=== PATIENT | female | born 1990 | race Caucasian/White ===

== ENCOUNTER 2018-10-12 10:52 | Emergency (ER) | payer OTHER ==
[2018-10-12 11:09] VITALS: BP 140/87
--- NOTE | 2018-10-12 11:51 | XRAY Report ---
Reason: pain with ROM, no known injury Procedure Date: 10/12/2018 Accession Number: [id number] / [id number] Procedure: XR - Shoulder 3 View RT CPT Code: FULL RESULT: EXAM: RIGHT SHOULDER RADIOGRAPHY EXAM DATE: 10/12/2018 11:24 AM. CLINICAL HISTORY: Pain with ROM, no known injury. COMPARISON: None. TECHNIQUE: 4 views. FINDINGS: Bones: Normal. No fracture or bone lesion. Joints: The glenohumeral and acromioclavicular joints are normal. Soft tissues: The visualized hemithorax is unremarkable. No soft tissue swelling. IMPRESSION: Normal shoulder radiography. RADIA
--- NOTE | 2018-10-12 12:54 | ED Physician Documentation ---
PD HPI UPPER EXT INJURY - Stated complaint Stated Complaint: RT SHOULDER PX - Chief complaint Chief Complaint: Ext Problem - History obtained from History obtained from: Patient - History of Present Illness Location: Right (This is a right-handed woman who had on and off problems with the right shoulder but never severe. Over the last week it has been much more significant without specific injury. Pain across the top of the shoulder that is especially severe with motion and abduction. No fevers or chills.) Review of Systems Constitutional: denies: Fever, Chills Respiratory: denies: Dyspnea, Cough GI: denies: Abdominal Pain, Nausea, Vomiting PD PAST MEDICAL HISTORY - Present Medications Home Medications: Ambulatory Orders Medication Instructions Recorded Confirmed Meloxicam [Mobic] 7.5 mg PO BID PRN #20 tablet 10/12/18 - Allergies Allergies/Adverse Reactions: Allergies Allergy/AdvReac Type Severity Reaction Status Date / Time No Known Drug Allergies Allergy Verified 10/12/18 11:09 PD ED PE NORMAL - Vitals Vital signs reviewed: Yes - General General: Alert and oriented X 3, No acute distress - Neck Neck: Supple, no meningeal sign, No bony TTP - Extremities Extremities: Other (Mild tenderness over the glenohumeral joint. No warmth or redness. She has relatively painless internal and external rotation. She has a lot of pain with abduction which is much less when I do it for her and she is passive. She has normal sensation throughout the upper extremities, normal life skills educator strength, thumb extension, and interosseous strength bilaterally.) - Neuro Neuro: Alert and oriented X 3, Normal speech Results - Vitals Vitals: Vital Signs - 24 hr 10/12/18 11:07 Temperature 36.4 C L Heart Rate 85 Respiratory 18 Rate Blood Pressure 140/87 H O2 Saturation 98 Oxygen O2 Source Room air - Rads (name of study) Right shoulder x-ray 3 views Radiology: EMP read contemporaneously (Normal) Departure - Departure Disposition: 01 Home, Self Care Clinical Impression: Strain of right rotator cuff capsule Qualifiers: Encounter type: initial encounter Qualified Code(s): S46.011A - Strain of muscle(s) and tendon(s) of the rotator cuff of right shoulder, initial encounter Condition: Good Record reviewed to determine appropriate education?: Yes Instructions: ED Tendinitis Rotator Cuff Prescriptions: Meloxicam [Mobic] 7.5 mg PO BID PRN #20 tablet PRN Reason: Pain Comments: Wear the sling for only a day or 2 for comfort. Do the exercises as shown several times a day to prevent frozen shoulder. Follow-up with your primary care physician in a week if not improved. Return for new or worsening symptoms. Your blood pressure was elevated today on check into the emergency department. This does not mean that you have hypertension, it is a common phenomenon to come to the emergency department and have elevated blood pressure. I recommend that you see your primary care physician within the week to have it rechecked when you are feeling better. Forms: Activity restrictions
== END 2018-10-12 13:10 | disposition home or self-care (01) ==
LOC: ED 10:52
DX: S46.011A Strain of muscle(s) and tendon(s) of the rotator cuff of right shoulder, initial encounter (principal); X58.XXXA Exposure to other specified factors, initial encounter; R03.0 Elevated blood-pressure reading, without diagnosis of hypertension
CPT/HCPCS: 99283

== ENCOUNTER 2018-12-03 08:00 | Outpatient (CLI) | payer OTHER | END 2018-12-03 23:59 | disposition home or self-care (01) | LOC: LAB.WCP 08:00 | PROVIDERS: ATTEND Physician Assistant | DX: Z33.1 Pregnant state, incidental (principal) | CPT/HCPCS: 36415; 84702 ==

== ENCOUNTER 2018-12-11 07:02 | Outpatient (CLI) | payer OTHER ==
--- NOTE | 2018-12-11 08:32 | Ultrasound Report ---
Reason: TEST POSITIVE Procedure Date: 12/11/2018 Accession Number: [id number] / [id number] Procedure: US - OB First Trimester CPT Code: FULL RESULT: EXAM: FIRST TRIMESTER OBSTETRIC ULTRASOUND (Less than 11 weeks) EXAM DATE: 12/11/2018 07:27 AM. CLINICAL HISTORY: Positive test. Unsure of dates. LMP unknown LMP: Unknown. COMPARISONS: None. TECHNIQUE: Transabdominal and transvaginal ultrasound examination with static image documentation. CLINICAL DATES: EGA unknown. ASSESSMENT: Gestational Sac: Single intrauterine. Mean gestational sac diameter: 20.9 mm = 6 weeks 5 days. Embryo: CRL (crown-rump length) 5.1 mm = 6 weeks 3 days. Cardiac activity: 116 beats per minute. Yolk sac: 4.1 mm. Amniotic fluid: Not accurately assessed at this gestational age. Early placenta: Not visible at this gestational age. Other: No perigestational fluid collection demonstrated. MATERNAL STRUCTURES: Uterus: Unremarkable. . Cervix: Closed. Right Ovary/Adnexa: The ovary measures 3.1 x 3.1 x 2.6 cm, volume 13.0 cc. 18 mm maximal diameter luteal cyst. Left Ovary/Adnexa: The ovary measures 2.5 x 1.3 x 1.6 cm, volume 2.7 cc. Unremarkable. Free Fluid: None. Other: None. IMPRESSION: 1. Single viable intrauterine at EGA 6 weeks 3 days with NAOMI 08/03/2019 based on current ultrasound. LMP 8 unsure. 2. Assigned dating is NAOMI 08/03/2019 based on current ultrasound. RADIA
== END 2018-12-11 07:03 | disposition home or self-care (01) ==
LOC: DI 07:02
PROVIDERS: ATTEND Nurse Practitioner Obstetrics & Gynecology
DX: Z32.01 Encounter for pregnancy test, result positive (principal)
CPT/HCPCS: 76801; 76817

== ENCOUNTER 2018-12-30 14:08 | Outpatient (CLI) | payer OTHER ==
[2018-12-30 23:13] LABS: TRICHOMONAS VAGINALIS DNA NEGATIVE (NEGATIVE)
== END 2018-12-30 14:45 | disposition home or self-care (01) ==
LOC: LAB.R 14:08
PROVIDERS: ATTEND Obstetrics & Gynecology
DX: Z34.80 Encounter for supervision of other normal pregnancy, unspecified trimester (principal)
CPT/HCPCS: 87491; 87591; 87661

== ENCOUNTER 2019-02-24 10:04 | Outpatient (CLI) | payer OTHER ==
[2019-02-24 10:30] LABS: BASOPHILS % (AUTO) 0.3 %; EOSINOPHILS # (AUTO) 0.1 10^3/uL (0.0-0.7); EOSINOPHILS % (AUTO) 1.1 %; HGB - HEMOGLOBIN 11.4 g/dL (12.0-16.0); LYMPHOCYTES # (AUTO) 1.5 10^3/uL (1.5-3.5); LYMPHOCYTES % (AUTO) 20.1 %; MEAN CORPUSCULAR HEMOGLOBIN 31.8 pg (27.0-31.0); MEAN CORPUSCULAR HGB CONC 34.7 g/dL (32.0-36.0); MEAN CORPUSCULAR VOLUME 91.6 fL (81.0-99.0); MEAN PLATELET VOLUME 9.5 fL (7.9-10.8); MONOCYTES # (AUTO) 0.4 10^3/uL (0.0-1.0); MONOCYTES % (AUTO) 5.1 %; NEUTROPHILS # (AUTO) 5.4 10^3/uL (1.5-6.6); NEUTROPHILS % (AUTO) 72.9 %; PLT - PLATELET COUNT 177 10^3/uL (130-450); RED BLOOD COUNT 3.59 10^6/uL (4.20-5.40); RED CELL DISTRIBUTION WIDTH 12.9 % (12.0-15.0); WHITE BLOOD COUNT 7.4 x10^3/uL (4.8-10.8)
[2019-02-25 11:35] LABS: HEPATITIS C ANTIBODY NON-REACTIVE (NON-REACTIVE)
[2019-02-25 11:37] LABS: HEPATITIS B SURFACE ANTIGEN NON-REACTIVE (NON-REACTIVE)
[2019-02-25 13:16] LABS: HIV AG/AB 4TH GEN NON-REACTIVE (NON-REACTIVE)
== END 2019-02-24 10:05 | disposition home or self-care (01) ==
LOC: LAB 10:04
PROVIDERS: ATTEND Obstetrics & Gynecology
DX: Z34.80 Encounter for supervision of other normal pregnancy, unspecified trimester (principal)
CPT/HCPCS: 36415; 81511; 81599; 85025; 86592; 86762; 86803; 86850; 86900; 86901; 87340; 87389

== ENCOUNTER 2019-02-27 08:27 | Outpatient (CLI) | payer OTHER | END 2019-02-27 08:28 | disposition home or self-care (01) | LOC: DI 08:27 | PROVIDERS: ATTEND Obstetrics & Gynecology | DX: Z53.9 Procedure and treatment not carried out, unspecified reason (principal) ==

== ENCOUNTER 2019-03-16 06:49 | Outpatient (CLI) | payer OTHER ==
--- NOTE | 2019-03-16 12:14 | Ultrasound Report ---
Reason: SUPERVISION NORMAL MULTIPAROUS Procedure Date: 03/16/2019 Accession Number: [id number] / [id number] Procedure: US - OB Detailed Eval CPT Code: FULL RESULT: EXAM: COMPLETE OBSTETRICAL ULTRASOUND EXAM DATE: 03/16/2019 08:45 AM. CLINICAL HISTORY: anatomic survey. COMPARISON: OB FIRST TRIMESTER 12/11/2018 7:27 AM. TECHNIQUE: Real-time sonographic evaluation of the fetus performed by the supervisor shuttle fitting. Multiple malt liquors sales representative static images were saved for review. DATING: Established EGA 20 weeks 0 days with NAOMI 08/03/2019 based on first ultrasound of 12/11/2018. EGA 21 weeks 0 days with NAOMI 07/27/2019 based on the current ultrasound. GENERAL EVALUATION [place] . Cardiac activity: 144 bpm. movement: Visualized. Presentation: Variable Placenta: Anterior position. No evidence for previa. Umbilical cord: 3 vessel cord. Central placental cord origin. Amniotic fluid: Subjectively normal. MVP 4.1 cm. BIOMETRY Bi-Parietal Diameter (BPD): 5 cm, 21 weeks 0 days Head Circumference (HC): 18.2 cm, 20 weeks 4 days Abdominal Circumference (AC): 16.2 cm, 21 weeks 2 days Femur Length (FL): 3.5 cm, 21 weeks 0 days Estimated Weight: 398 g, 94th percentile for 20 weeks 0 days. ANATOMY The intracranial structures, profile, face/nose/lips, spine, 4 chamber heart and outflow tracts, stomach, abdominal wall and cord insertion, diaphragm, kidneys, bladder, and extremities were visualized and demonstrate no abnormality. MATERNAL STRUCTURES Uterus: Unremarkable. Cervix: Long and closed. Transabdominal length 3.9 cm. Right ovary/adnexa: Unremarkable. Left ovary/adnexa: Unremarkable. Free fluid: None. IMPRESSION: 1. [place] intrauterine with gestational age 20 weeks 0 days based on 12/11/2018 ultrasound. 2. Estimated weight is at the 94th percentile for assigned dating. 3. Normal anatomic survey. No anatomic abnormalities are detected at this time. RADIA
== END 2019-03-16 06:50 | disposition home or self-care (01) ==
LOC: DI 06:49
PROVIDERS: ATTEND Obstetrics & Gynecology
DX: Z34.80 Encounter for supervision of other normal pregnancy, unspecified trimester (principal)
CPT/HCPCS: 76811

== ENCOUNTER 2019-05-07 15:20 | Outpatient (CLI) | payer OTHER ==
[2019-05-07 16:45] LABS: HGB - HEMOGLOBIN 10.6 g/dL (12.0-16.0); MEAN CORPUSCULAR HEMOGLOBIN 32.3 pg (27.0-31.0); MEAN CORPUSCULAR HGB CONC 35.8 g/dL (32.0-36.0); MEAN CORPUSCULAR VOLUME 90.2 fL (81.0-99.0); MEAN PLATELET VOLUME 9.2 fL (7.9-10.8); RED BLOOD COUNT 3.28 10^6/uL (4.20-5.40); RED CELL DISTRIBUTION WIDTH 11.9 % (12.0-15.0); WHITE BLOOD COUNT 10.8 x10^3/uL (4.8-10.8)
== END 2019-05-07 15:21 | disposition home or self-care (01) ==
LOC: LAB 15:20
PROVIDERS: ATTEND Obstetrics & Gynecology
DX: Z34.80 Encounter for supervision of other normal pregnancy, unspecified trimester (principal)
CPT/HCPCS: 36415; 82950; 85027; 86850

== ENCOUNTER 2019-06-30 02:10 | Inpatient (IN) | payer OTHER ==
[2019-06-30] MEDS ORDERED: SODIUM CHLORIDE FLUSH 0.9% 10 ML SYRINGE IVP PRN (02:35)
[2019-06-30] MEDS ORDERED: BETAMETHASONE 30 MG/5 ML VIAL IM ONE (02:39)
[2019-06-30] MEDS ORDERED: AMPICILLIN 2 GM in SODIUM CHLORIDE 0.9% MINIBAG 100 ML IV ONE (02:39)
--- NOTE | 2019-06-30 02:45 | HISTORY & PHYSICAL EXAMINATION ---
Admit History - Visit Reason Visit Reason: Membranes rupture, Other (Pt is a 28yo at 35 1/7 weeks who presents following gush of clear fluid at 0130 today. No bleeding or contractions. No N/V/F/C. Reports normal activity. complicated by iron deficiency anemia.) - : 2 Parity: 0 Premature: 0 Ectopic: 0 : 1 Care: positive: [facility] Risk/History: positive: None, Other (O neg Rubella immune HIV/Hep B and C/VDRL neg GC/chlam neg Glucola 125 Varicella not immune S/P TDap and flu shot 06/09/19) Complications This : positive: Other (Iron deficiency anemia; last H&H 29.6/10.6 05/07/19) Smoking Status: Former smoker - Mother's Labs Mother's Blood Type: positive: O Mother's RH: positive: Negative GBS: positive: Other (Unknown) Rubella Status: positive: Immune Meds/Allgy - Home Medications Home Medications: Ambulatory Orders Medication Instructions Recorded Confirmed Calcium Carbonate/Vitamin D3 06/30/19 [Calcium 250-D Tablet] Ferrous Gluconate [Iron] 240 mg 06/30/19 Pnv No.95/Ferrous Fum/Folic AC 1 tab PO DAILY 06/30/19 06/30/19 [ Caplet] - Allergies Allergies/Adverse Reactions: Allergies Allergy/AdvReac Type Severity Reaction Status Date / Time No Known Drug Allergies Allergy Verified 10/12/18 11:09 Review of Systems - Cardiovascular Cariovascular: denies: Palpitations - Respiratory Respiratory: denies: Wheezing - Gastrointestinal Gastrointestinal: denies: Abdominal pain - Genitourinary Genitourinary: denies: Dysuria - Neurological Neurological: denies: Headache - Hematologic/Lymphatic Hematologic/Lymphatic: reports: Anemia - All Other Systems All Other Systems: reports: Reviewed and negative Physical - Abdominal Exam Vital Signs: Temp Pulse Resp BP Pulse Ox 97.9 F 101 H 20 141/80 H 100 06/30/19 02:21 06/30/19 02:21 06/30/19 02:21 06/30/19 02:21 06/30/19 02:21 Contraction Intensity: positive: Mild, Other (Not feeling them) Uterine Resting Tone: positive: Soft (Contractions on EFM q2-4 minutes; patient not feeling them) - Monitoring Strip Review: positive: Category I - Presentation Presentation: positive: Vertex - Vaginal Exam Membranes: positive: Membranes ruptured Dilation (in cm): 0 Effacement (%): 0 Cervical Position: positive: Midposition (Sterile spec exam only; visual assessment) Plan for Labor - Plan For Labor Plan for Labor: 28yo at 35 1/7 weeks with PPROM clear fluid at 0130 today, not in labor, cervix visually L/C. Plan transfer to [facility]. They request hold on ampicillin so they can perform rapid GBS. GBS unknown; complicated by anemia Exam otherwise normal. Contractions not noted by patient. Category 1 tracing. Plan betamethasone CBC Borderline BP on admission; rpt 131/83 No previously elevated BP Transfer accepted by Dr Kinney Exam - Exam Vital Signs: Vital Signs (72 hours) 06/30/19 02:21 Temperature 97.9 F Heart Rate [ 101 H Monitoring electrodes] Respiratory 20 Rate Blood Pressure 141/80 H [Left Brachial artery] O2 Saturation 100 General: Alert, Oriented x3 HEENT: Atraumatic Lungs: Clear to auscultation Cardiovascular: Regular rate, Other (3/6 systolic murmur along LSB) Abdomen: Soft, No tenderness, Other (Gravid, S=D) Extremities: No edema Skin: No rashes Psych/Mental Status: Mental status NL
[2019-06-30] MEDS ORDERED: LACTATED RINGERS 1,000 ML IV SCH (03:00)
[2019-06-30 03:11] LABS: BASOPHILS % (AUTO) 0.3 %; EOSINOPHILS # (AUTO) 0.2 10^3/uL (0.0-0.7); EOSINOPHILS % (AUTO) 1.7 %; HGB - HEMOGLOBIN 11.2 g/dL (12.0-16.0); LYMPHOCYTES # (AUTO) 2.7 10^3/uL (1.5-3.5); LYMPHOCYTES % (AUTO) 25.1 %; MEAN CORPUSCULAR HEMOGLOBIN 30.4 pg (27.0-31.0); MEAN CORPUSCULAR HGB CONC 34.4 g/dL (32.0-36.0); MEAN CORPUSCULAR VOLUME 88.6 fL (81.0-99.0); MEAN PLATELET VOLUME 9.7 fL (7.9-10.8); MONOCYTES # (AUTO) 0.9 10^3/uL (0.0-1.0); MONOCYTES % (AUTO) 8.4 %; NEUTROPHILS # (AUTO) 6.8 10^3/uL (1.5-6.6); NEUTROPHILS % (AUTO) 63.1 %; PLT - PLATELET COUNT 162 10^3/uL (130-450); RED BLOOD COUNT 3.68 10^6/uL (4.20-5.40); RED CELL DISTRIBUTION WIDTH 13.2 % (12.0-15.0); WHITE BLOOD COUNT 10.8 x10^3/uL (4.8-10.8)
[2019-06-30 04:38] VITALS: BP 131/83
[2019-06-30] MEDS ORDERED: SODIUM CHLORIDE FLUSH 0.9% 10 ML SYRINGE IVP SCH (09:00)
== END 2019-06-30 04:10 | disposition short-term general hospital (02) | DRG 833 ==
LOC: WFO 02:10 → FBP 02:12 → WFO 02:45
PROVIDERS: ADMIT Obstetrics & Gynecology; ATTEND Obstetrics & Gynecology
DX: O42.913 Preterm premature rupture of membranes, unspecified as to length of time between rupture and onset of labor, third trimester (principal); Z3A.35 35 weeks gestation of pregnancy; O99.013 Anemia complicating pregnancy, third trimester; D50.9 Iron deficiency anemia, unspecified; R03.0 Elevated blood-pressure reading, without diagnosis of hypertension; Z87.891 Personal history of nicotine dependence; Z79.899 Other long term (current) drug therapy
CPT/HCPCS: 36415; 85025; J7120; 99214

== ENCOUNTER 2020-03-16 12:19 | Emergency (ER) | payer OTHER ==
[2020-03-16] MEDS ORDERED: BUFFERED LIDOCAINE 10 ML SYRINGE SUBQ STA (12:33)
[2020-03-16] MEDS ORDERED: BACITRACIN ZINC OINT 1 PACKET TOP STA (12:33)
[2020-03-16] MEDS ORDERED: ONDANSETRON ODT 4 MG TABLET TL STA (12:40)
--- NOTE | 2020-03-16 12:40 | ED Physician Documentation ---
History of Present Illness - Stated complaint Stated Complaint: LT HAND LAC - Chief complaint Chief Complaint: Laceration - History obtained from History obtained from: Patient - History of Present Illness Timing: Prior to arrival - Additonal information Additional information: Since the emergency department with a laceration on the dorsum of her left small finger sustained at work when she broke a glass in her hand. Tetanus is up-to-date. Patient is right-hand dominant. When being seen in fast track by provider patient began to feel faint and lightheaded and had a syncopal episode with about 10 to 15 seconds loss of consciousness it was followed followed by a very short lived seizure as evidenced by bue clonic jerking. She retained her pulse was able to wake after just a few seconds. Review of Systems Constitutional: reports: Reviewed and negative Eyes: reports: Reviewed and negative Nose: reports: Reviewed and negative Throat: reports: Reviewed and negative Cardiac: reports: Reviewed and negative Respiratory: reports: Reviewed and negative GI: reports: Reviewed and negative : reports: Reviewed and negative Skin: reports: Laceration (s) (left small finger) Musculoskeletal: reports: Reviewed and negative Neurologic: reports: Syncope (in fast track when she saw her cut and blood) Psychiatric: reports: Reviewed and negative Endocrine: reports: Reviewed and negative PD PAST MEDICAL HISTORY - Past Medical History Past Medical History: No Cardiovascular: None Respiratory: None Neuro: None Endocrine/Autoimmune: None GI: None 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 : None HEENT: None Psych: None Musculoskeletal: None Derm: None - Past Surgical History Past Surgical History: No - Present Medications Home Medications: Ambulatory Orders Medication Instructions Recorded Confirmed Calcium Carbonate/Vitamin D3 06/30/19 [Calcium 250-D Tablet] Ferrous Gluconate [Iron] 240 mg 06/30/19 Pnv No.95/Ferrous Fum/Folic AC 1 tab PO DAILY 06/30/19 06/30/19 [ Caplet] - Allergies Allergies/Adverse Reactions: Allergies Allergy/AdvReac Type Severity Reaction Status Date / Time No Known Drug Allergies Allergy Verified 03/16/20 12:22 - Social History Does the pt smoke?: No Smoking Status: Never smoker Does the pt drink ETOH?: No Does the pt have substance abuse?: No - Immunizations Immunizations are current?: Yes - POLST Patient has POLST: No PD ED PE NORMAL - General General: Alert and oriented X 3, Other (anxious; light headed about the laceration) - HEENT HEENT: PERRL - Neck Neck: Supple, no meningeal sign - Cardiac Cardiac: RRR, No murmur - Respiratory Respiratory: Clear bilaterally - Derm Derm: Normal color, Warm and dry, Other (4 cm irregular laceration dorsum left hand between MCP and PIP joint) - Extremities Extremities: No deformity. No: No tenderness to palpate (4 cm laceration on the dorsum of left small finger between MCP and PIP joint. Patient retains ability to fully flex and extend left small digit against resistance in all planes. There is mild tingling and numbness on the lateral side of the small finger) - Neuro Neuro: Alert and oriented X 3, [place] 2-12 intact, No motor deficit, No sensory deficit Eye Opening: Spontaneous Motor: Obeys Commands Verbal: Oriented GCS Score: 15 - Psych Psych: Normal mood, Normal affect Results - Vitals Vitals: Vital Signs - 24 hr 03/16/20 12:22 Temperature 37.1 C Heart Rate 108 H Respiratory 18 Rate Blood Pressure 153/99 H O2 Saturation 98 Oxygen O2 Source Room air Procedures - Laceration (location) left small finger Wound type: Irregular Neurovascular status: Sensory intact, Motor intact, Vascular intact Tendon involvement: Tendon intact Anesthesia: Lidocaine 1% Wound Preparation: Chlorhexadine, Irrigated copiously NS Skin layer closure: Size #-0 - enter number (5), Sutures - enter # (7) Other: Patient tolerated well, No complications, Neurovascular intact, Dressing applied, Tetanus UTD Complexity: Simple PD MEDICAL DECISION MAKING - ED course Complexity details: reviewed results, re-evaluated patient, d/w patient ED course: 29-year-old female presents to the emergency department with a 4 cm laceration overlying the dorsum of her left small finger between MCP and PIP joint. no e/o tendon injury. Wound was closed with 7 sutures. Tetanus is up-to-date. Patient did have a syncopal episode shortly after arriving in fast track when she saw her blood. During the time it which the wound was repaired and she was alert oriented and otherwise well-appearing. Tetanus is up-to-date within the last 5 years. 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 Departure - Departure Disposition: 01 Home, Self Care Clinical Impression: Finger laceration Qualifiers: Encounter type: initial encounter Finger: little finger Damage to nail status: without damage Foreign body presence: without foreign body Laterality: left Qualified Code(s): S61.217A - Laceration without foreign body of left little finger without damage to nail, initial encounter Condition: Stable Record reviewed to determine appropriate education?: Yes Instructions: ED Laceration All Follow-Up: Mary Ayala PA [Primary Care Provider] - Comments: The sutures in your left hand should be removed in 7 to 10 days. In 24 hours you may gently wash the wound with warm soap and water, apply any antibiotic ointment and a simple bandage. If you develop redness swelling milky drainage have increased pain or concerns of infection please return to the emergency department. Do Not submerge her hand in dirty water bath or dishwater until the wound is fully healed
[2020-03-16 13:37] VITALS: BP 124/74
== END 2020-03-16 13:35 | disposition home or self-care (01) ==
LOC: ED 12:19
DX: S61.217A Laceration without foreign body of left little finger without damage to nail, initial encounter (principal); W25.XXXA Contact with sharp glass, initial encounter; Y99.0 Civilian activity done for income or pay; R55 Syncope and collapse; R56.9 Unspecified convulsions
CPT/HCPCS: 12002; 99282; A9270; Q0162

== ENCOUNTER 2021-10-06 11:40 | Emergency (ER) | payer SELFPAY ==
[2021-10-06 11:49] VITALS: BP 150/90
--- NOTE | 2021-10-06 12:20 | ED Physician Documentation ---
PD HPI ABD PAIN - Stated complaint Stated Complaint: ABD PX - Chief complaint Chief Complaint: Abd Pain - History obtained from History obtained from: Patient - Additional information Additional information: The patient comes to the emergency department with chief complaint of upper abdominal pain, nausea, and lightheadedness. The patient states that she was feeling fine earlier this morning but almost 2 hours ago at work, she bent over to get something and when she stood up, she felt as though "something moved" in her right upper quadrant and she had nausea, right upper quadrant pain, and lightheadedness after that. The patient states she did not vomit. She still feeling a pain and a mild sense of nausea. Patient denies having had this before. No issues with right upper quadrant pain and nausea with eating. She is not known to have a cholecystitis/cholelithiasis history in her family. She denies any other symptoms or complaints at this time. Review of Systems Ten Systems: 10 systems reviewed and negative Constitutional: reports: Reviewed and negative Eyes: reports: Reviewed and negative Ears: reports: Reviewed and negative Nose: reports: Reviewed and negative Throat: reports: Reviewed and negative Cardiac: reports: Reviewed and negative Respiratory: reports: Reviewed and negative GI: reports: Abdominal Pain, Nausea : reports: Reviewed and negative Skin: reports: Reviewed and negative Musculoskeletal: reports: Reviewed and negative Neurologic: reports: Reviewed and negative Psychiatric: reports: Reviewed and negative Endocrine: reports: Reviewed and negative Immunocompromised: reports: Reviewed and negative PD PAST MEDICAL HISTORY - Past Medical History Cardiovascular: None Respiratory: None Neuro: None Endocrine/Autoimmune: None GI: None 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 : None HEENT: None Psych: None Musculoskeletal: None Derm: None - Past Surgical History Past Surgical History: No - Present Medications Home Medications: Ambulatory Orders Medication Instructions Recorded Confirmed Calcium Carbonate/Vitamin D3 06/30/19 [Calcium 250-D Tablet] Ferrous Gluconate [Iron] 240 mg 06/30/19 Pnv No.95/Ferrous Fum/Folic AC 1 tab PO DAILY 06/30/19 06/30/19 [ Caplet] - Allergies Allergies/Adverse Reactions: Allergies Allergy/AdvReac Type Severity Reaction Status Date / Time No Known Drug Allergies Allergy Verified 10/06/21 11:45 - Social History Does the pt smoke?: No Smoking Status: Never smoker Does the pt drink ETOH?: No Does the pt have substance abuse?: No - Immunizations Immunizations are current?: Yes - POLST Patient has POLST: No PD ED PE NORMAL - Vitals Vital signs reviewed: Yes - General General: Alert and oriented X 3, No acute distress, Well developed/nourished - HEENT HEENT: Atraumatic, PERRL, EOMI, Moist mucous membranes - Neck Neck: Supple, no meningeal sign - Cardiac Cardiac: RRR, No murmur, Strong equal pulses - Respiratory Respiratory: No respiratory distress, Clear bilaterally - Abdomen Abdomen: Soft, Non distended, Other (Mild right upper quadrant tenderness, no r ebound or guarding.) - Derm Derm: Normal color, Warm and dry, No rash - Extremities Extremities: No deformity, No edema - Neuro Neuro: Alert and oriented X 3 - Psych Psych: Normal mood, Normal affect Results - Vitals Vitals: Oxygen O2 Source Room air PD MEDICAL DECISION MAKING - ED course Complexity details: reviewed results, re-evaluated patient, considered differential, d/w patient ED course: Patient was worked up with ultrasound of her right upper quadrant. Departure - Departure Disposition: 01 Home, Self Care Clinical Impression: Abdominal pain Qualifiers: Abdominal location: upper abdomen, unspecified Qualified Code(s): R10.10 - Upper abdominal pain, unspecified Condition: Stable Instructions: ED Abdominal Pain Female Non-Specific Abdominal Pain Comments: Your ultrasound is negative. It is not exactly clear why you had the symptoms you had today, but there is no evidence of any emergent or serious condition at this time. If you continue to have episodes of abdominal discomfort, please follow-up with your primary doctor. Discharge Date/Time: 10/06/21 15:43
--- NOTE | 2021-10-06 14:00 | Ultrasound Report ---
PROCEDURE: Abdomen Limited INDICATIONS: ruq pain, nausea TECHNIQUE: Real-time scanning was performed of the abdominal and retroperitoneal organs, with image documentatio n. COMPARISON: None. FINDINGS: Liver: Normal is size and echotexture. No evidence of focal mass lesion. No intra hepatic biliary ductal dilatation. Gallbladder: Sonolucent without cholelithiasis. No gallbladder wall thickening. No pericholecystic fluid or Kirkland's sign. Common Bile Duct: 3.7 mm. Pancreas: Unremarkable as visualized. Right Kidney: Appropriate in size and echotexture. No evidence of hydronephrosis. No shadowing calc linda. No solid or cystic mass lesion. IMPRESSION: Unremarkable right upper quadrant ultrasound Reviewed by: Shaw Wu MD on 10/06/2021 12:59 PM AKBAR Approved by: Shaw Wu MD on 10/06/2021 12:59 PM AKBAR Station ID: [id number]
== END 2021-10-06 15:43 | disposition home or self-care (01) ==
LOC: ED 11:40
DX: R10.11 Right upper quadrant pain (principal)
CPT/HCPCS: 99282; 99284

== ENCOUNTER 2022-03-06 22:22 | Outpatient (CLI) | payer SELFPAY ==
--- NOTE | 2022-03-07 00:03 | Ultrasound Report ---
PROCEDURE: OB First Trimester w/TV INDICATIONS: POSITIVE TEST OUTSIDE/PRIOR DATING DATA: Last menstrual period (LMP): 12/31/2021. LMP-based estimated date of delivery (NAOMI): 10/07/2022. TECHNIQUE: Real-time scanning was performed of the fetus and maternal pelvic organs, with image documentation. Endovaginal scanning was also performed to better visualize the fetus and maternal ovaries. COMPARISON: None from current . FINDINGS: Embryo: There is a twin dichorionic diamniotic intrauterine . Twin A demonstrates a crown-r ump length of 0.6 cm corresponding to a gestational age of 6 weeks 3 days. Twin B demonstrates a [place] n-rump length of 1.1 cm corresponding to gestational age of 7 weeks 1 day. No heart motion is i dentified within either pole on M-mode Doppler interrogation. Measurement variability in dating: +/- 4 weeks by LMP, +/- 7 days by mean sac diameter (use before 6 weeks gestation if crown-rump length not able to be measured), +/- 5 days by crown-rump length (6-12 weeks gestation). Maternal organs: The ovaries appear within normal size limits. There are 2 anechoic thin-walled cyst within the left ovary measuring measuring up to 2.8 cm and 1.6 cm. IMPRESSION: 1. Intrauterine twin with irregularity of the poles which demonstrate discrepant size s. No heart motion is identified. The findings are suggestive of demise. Recommend clinic al follow-up. Findings reported to Dr. Key at the conclusion of the study by the geospatial technologist. Reviewed by: Rakesh Constantino MD on 03/07/2022 12:02 AM PDT Approved by: Rakesh Constantino MD on 03/07/2022 12:02 AM PDT Station ID: [id number]
== END 2022-03-06 22:23 | disposition home or self-care (01) ==
LOC: DI 22:22
PROVIDERS: ATTEND Obstetrics & Gynecology
DX: Z32.01 Encounter for pregnancy test, result positive (principal)

== ENCOUNTER 2022-10-23 09:29 | Emergency (ER) | payer OTHER ==
--- NOTE | 2022-10-23 10:01 | ED Physician Documentation ---
PD HPI LOWER EXT INJURY - Stated complaint Stated Complaint: DOG BITE - Chief complaint Chief Complaint: Wound - History obtained from History obtained from: Patient - History of Present Illness PD HPI LOW EXT INJURY LOCATION: Right, Calf, Other (also right forearm) Type of injury: Other (dogbites - she has 2 dogs and they were starting to growl at each other then fight. She got between them to stop excalation and one dog bit at her arm then leg.) Where injury occurred: Home Timing - onset: How many minutes ago (30), Today Timing - details: Abrupt onset Worsened by: Moving (her arm does not hurt to move. 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 : None HEENT: None Psych: None Musculoskeletal: None Derm: None - Past Surgical History Past Surgical History: No - Present Medications Home Medications: Ambulatory Orders Medication Instructions Recorded Confirmed Amox/Clav 875/125 [Augmentin] 1 each PO BID #10 tablet 10/23/22 - Allergies Allergies/Adverse Reactions: Allergies Allergy/AdvReac Type Severity Reaction Status Date / Time No Known Drug Allergies Allergy Verified 10/23/22 09:35 - Social History Does the pt smoke?: No Smoking Status: Never smoker Does the pt drink ETOH?: Yes Does the pt have substance abuse?: No - Immunizations Immunizations are current?: Yes - POLST Patient has POLST: No PD ED PE NORMAL - Vitals Vital signs reviewed: Yes - General General: Alert and oriented X 3, Well developed/nourished, Other (slightly shaken/anxious but pleasant and conversant. ) - Derm Derm: Normal color, Warm and dry - Extremities Extremities: Other (right foearm with partial thickness abrasion linear c/w t ooth yaneth/bite. Some local tenderness. No pain with movement. Right lateral calf with lac to fatty layer. Mild bleeding. No FB noted. Tender deeper to palp and some pain with eversion/plantar flex at ankle. Normal sensation in foot/ankle. 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 Shared discussion of suturing vs infection risk and opt for close suturing.), d/w patient ED course: dog bite with leg wound into deeper tissue so risk for infection. To Rx Augmentin. Also she has not had recent tetanus so given booster. Her dogs are immunized and this is low risk area for rabies, so no prophylaxis indicated. Departure - Departure Disposition: 01 Home, Self Care Clinical Impression: Dog bite Condition: Stable Record reviewed to determine appropriate education?: Yes Instructions: ED Bite Dog Prescriptions: Amox/Clav 875/125 [Augmentin] 1 each PO BID #10 tablet Comments: It is okay to wash and shower. Clean off the wound twice a day with soap and water, or peroxide and water. Apply some antibiotic ointment to it to keep it moist. Also to watch for signs of infection such as purulence, redness or increasing pain. Return to your primary care or the ER at the specified time for suture removal. Suture removal 7 to 10 days. It is okay to wash and shower. Tylenol or ibuprofen if needed for pains. We do worry about infection with dog bites so I prescribed Augmentin twice daily for the next 5 days. I sent this to the [facility] pharmacy. You were given a tetanus booster here as well. Discharge Date/Time: 10/23/22 11:24
[2022-10-23] MEDS ORDERED: IBUPROFEN 600 MG TABLET PO STA (10:07)
[2022-10-23] MEDS ORDERED: AMOX/CLAV 875 MG/125 MG TABLET PO STA (10:07)
[2022-10-23] MEDS ORDERED: ACETAMINOPHEN 325 MG TABLET PO STA (10:07)
[2022-10-23] MEDS ORDERED: TETANUS/DIPHTHERIA/PERTUSSIS 0.5 ML SYRINGE IM ONE (10:08)
[2022-10-23 10:38] VITALS: BP 124/88
== END 2022-10-23 11:24 | disposition home or self-care (01) ==
LOC: ED 09:29
DX: S89.91XA Unspecified injury of right lower leg, initial encounter (principal); W54.0XXA Bitten by dog, initial encounter; Z23 Encounter for immunization; Z71.85 Encounter for immunization safety counseling
CPT/HCPCS: 12001; 90471; 90715; 99282; 99283; A9270

== ENCOUNTER 2023-01-13 09:27 | Outpatient (CLI) | payer OTHER ==
--- NOTE | 2023-01-13 10:22 | Ultrasound Report ---
PROCEDURE: OB First Trimester w/TV INDICATIONS: POSITIVE PRENANCY TEST OUTSIDE/PRIOR DATING DATA: Last menstrual period (LMP): 10/29/2022. LMP-based estimated date of delivery (NAOMI): 08/05/2023. First dating scan (date and location): 01/13/2023. Estimated date of delivery (NAOMI) from first dating scan: 09/13/2023. TECHNIQUE: Real-time scanning was performed of the fetus and maternal pelvic organs, with image documentation. Endovaginal scanning was also performed to better visualize the fetus and maternal ovaries. COMPARISON: None. FINDINGS: Intrauterine gestational sac present. Embryo: No gestational sac is noted at this time. Mean gestational sac diameter measures 5.3 mm with estimated gestational age of 5 weeks, 2 days. Heart rate: heart rate is not detected at this time. Other: No perigestational fluid collection. Measurement variability in dating: +/- 4 weeks by LMP, +/- 7 days by mean sac diameter (use before 6 weeks gestation if crown-rump length not able to be measured), +/- 5 days by crown-rump length (6-12 weeks gestation). Maternal organs: Ovaries appear within normal limits. IMPRESSION: 1. Single live intrauterine gestation with and yolk sac seen. No pole or cardiac activity is detected. Please correlate with serial beta-hCG levels follow-up ultrasound for evaluation of via bility. Reviewed by: Antwon Field MD on 01/13/2023 10:21 AM PDT Approved by: Antwon Field MD on 01/13/2023 10:21 AM PDT Station ID: [id number]
== END 2023-01-13 09:28 | disposition home or self-care (01) ==
LOC: DI 09:27
PROVIDERS: ATTEND Obstetrics & Gynecology
DX: Z34.91 Encounter for supervision of normal pregnancy, unspecified, first trimester (principal)

== ENCOUNTER 2023-01-29 15:10 | Outpatient (CLI) | payer OTHER ==
--- NOTE | 2023-01-29 16:50 | Ultrasound Report ---
PROCEDURE: OB First Trimester w/TV INDICATIONS: SUPERVISION OF OUTSIDE/PRIOR DATING DATA: Last menstrual period (LMP): 10/29/2022. LMP-based estimated date of delivery (NAOMI): 09/06/2023. First dating scan (date and location): 01/13/2023. Estimated date of delivery (NAOMI) from first dating scan: 09/25/2023, based on OB ultrasound today. TECHNIQUE: Real-time scanning was performed of the fetus and maternal pelvic organs, with image documentation. Endovaginal scanning was also performed to better visualize the fetus and maternal ovaries. COMPARISON: None. FINDINGS: Intrauterine gestational sac present. Embryo: Single live intrauterine identified with crown-rump length measuring 0.27 cm corre sponding to 5 weeks 6 days. Heart rate: 106 bpm. Other: No perigestational fluid collection. Measurement variability in dating: +/- 4 weeks by LMP, +/- 7 days by mean sac diameter (use before 6 weeks gestation if crown-rump length not able to be measured), +/- 5 days by crown-rump length (6-12 weeks gestation). Maternal organs: Ovaries demonstrate a right corpus luteal cyst. IMPRESSION: Single live intrauterine with ultrasound gestational age today of 5 weeks 6 days. Recommend follow-up imaging at 20-22 weeks for dates and anatomy. Reviewed by: Mera Solis MD on 01/29/2023 4:49 PM PDT Approved by: Mera Solis MD on 01/29/2023 4:49 PM PDT Station ID: [id number]
== END 2023-01-29 15:11 | disposition home or self-care (01) ==
LOC: DI 15:10
PROVIDERS: ATTEND Obstetrics & Gynecology
DX: Z34.92 Encounter for supervision of normal pregnancy, unspecified, second trimester (principal)

== ENCOUNTER 2023-02-05 08:00 | Outpatient (CLI) | payer OTHER ==
[2023-02-05 20:49] LABS: CHLAMYDIA TRACHOMATIS DNA NEGATIVE (NEGATIVE); NEISSERIA GONORRHOEAE DNA NEGATIVE (NEGATIVE); TRICHOMONAS VAGINALIS DNA NEGATIVE (NEGATIVE)
== END 2023-02-05 23:59 | disposition home or self-care (01) ==
LOC: LAB.WC 08:00
PROVIDERS: ATTEND Obstetrics & Gynecology
DX: Z34.90 Encounter for supervision of normal pregnancy, unspecified, unspecified trimester (principal)
CPT/HCPCS: 87491; 87591; 87661

== ENCOUNTER 2023-02-15 15:47 | Outpatient (CLI) | payer OTHER ==
[2023-02-15 16:06] LABS: BASOPHILS % (AUTO) 0.4 %; EOSINOPHILS # (AUTO) 0.2 10^3/uL (0.0-0.7); HCT - HEMATOCRIT 40.5 % (37.0-47.0); HGB - HEMOGLOBIN 14.2 g/dL (12.0-16.0); LYMPHOCYTES # (AUTO) 2.5 10^3/uL (1.5-3.5); LYMPHOCYTES % (AUTO) 32.7 %; MEAN CORPUSCULAR HEMOGLOBIN 31.1 pg (27.0-31.0); MEAN CORPUSCULAR HGB CONC 35.1 g/dL (32.0-36.0); MEAN CORPUSCULAR VOLUME 88.8 fL (81.0-99.0); MEAN PLATELET VOLUME 9.1 fL (7.9-10.8); MONOCYTES # (AUTO) 0.4 10^3/uL (0.0-1.0); MONOCYTES % (AUTO) 5.7 %; NEUTROPHILS # (AUTO) 4.5 10^3/uL (1.5-6.6); NEUTROPHILS % (AUTO) 59.1 %; PLT - PLATELET COUNT 236 10^3/uL (130-450); RED BLOOD COUNT 4.56 10^6/uL (4.20-5.40); RED CELL DISTRIBUTION WIDTH 11.6 % (12.0-15.0); WHITE BLOOD COUNT 7.6 x10^3/uL (4.8-10.8)
[2023-02-15 17:25] LABS: BILIRUBIN,URINE NEGATIVE (NEGATIVE); GLUCOSE, URINE (UA) NEGATIVE (NEGATIVE); KETONES,URINE (UA) NEGATIVE (NEGATIVE); LEUKOCYTE ESTERASE, URINE NEGATIVE (NEGATIVE); NITRITE,URINE NEGATIVE (NEGATIVE); OCCULT BLOOD,URINE SMALL (NEGATIVE); PROTEIN,URINE NEGATIVE (NEGATIVE); UROBILINOGEN,URINE 0.2 (NORMAL) E.U./dL (NORMAL)
[2023-02-15 19:02] LABS: BACTERIA,URINE None Seen /HPF (None Seen); CLARITY,URINE CLEAR (CLEAR); RBC,URINE 0-5 /HPF (0-5); SQUAMOUS EPITHELIAL CELL,UR NONE SEEN (<= Few); WBC,URINE 0-3 /HPF (0-5)
[2023-02-15 21:42] LABS: BACTERIAL VAGINOSIS DNA NEGATIVE (NEGATIVE); CANDIDA GLABRATA DNA NEGATIVE (NEGATIVE); CANDIDA GROUP DNA NEGATIVE (NEGATIVE); CANDIDA KRUSEI DNA NEGATIVE (NEGATIVE); TRICHOMONAS VAGINALIS DNA NEGATIVE (NEGATIVE)
[2023-02-16 07:09] LABS: HBsAG SCREEN Negative (Negative); HCV AB Non Reactive (Non Reactive); HIV SCREEN 4TH GENERATION Non Reactive (Non Reactive); RPR Non Reactive (Non Reactive)
[2023-02-16 09:09] LABS: VARICELLA-ZOSTER AB IGG >4000 index (Immune >165)
== END 2023-02-15 15:48 | disposition home or self-care (01) ==
LOC: LAB 15:47
PROVIDERS: ATTEND Obstetrics & Gynecology
DX: O26.851 Spotting complicating pregnancy, first trimester (principal); O99.891 Other specified diseases and conditions complicating pregnancy; R35.0 Frequency of micturition
CPT/HCPCS: 36415; 81001; 81514; 84702; 85025; 86592; 86762; 86787; 86803; 86850; 86900; 86901; 87086; 87340; 87389

== ENCOUNTER 2023-02-21 07:56 | Day surgery (SDC) | payer OTHER ==
[2023-02-21] MEDS ORDERED: LACTATED RINGERS 1,000 ML IV ONE ×2 (08:35→11:47)
[2023-02-21] MEDS ORDERED: ONDANSETRON 4 MG/2 ML VIAL ONE (08:56)
--- NOTE | 2023-02-21 10:06 | ANESTHESIA ---
Pre-Anesthesia VS, & Labs - Diagnosis missed - Procedure treatment of missed , spontanous, incomplete Vital Signs: Temp Pulse Resp BP Pulse Ox O2 Flow Rate 36.2 C L 76 14 117/80 98 02/21/23 08:30 02/21/23 08:30 02/21/23 08:30 02/21/23 08:30 02/21/23 08:30 Height: 5 ft 2 in Weight (kg): 65 kg Body Mass Index: 26.2 BMI Classification: Overweight - NPO >8 hours - Is Patient ?: No Home Medications and Allergies Home Medications: Ambulatory Orders No Known Home Medications 02/20/23 No Known Home Medications 02/20/23 Allergies/Adverse Reactions: Allergies Allergy/AdvReac Type Severity Reaction Status Date / Time No Known Drug Allergies Allergy Verified 10/23/22 09:35 Anes History & Medical History - Anesthetic History Anesthesia Complications: reports: No previous complications - Medical History Cardiovascular: reports: None Pulmonary: reports: None Gastrointestinal: reports: None Urinary: reports: None Neuro: reports: None Musculoskeletal: reports: None Endocrine/Autoimmune: reports: None Blood Disorders: reports: None Skin: reports: None Smoking Status: Never smoker History of Cancer?: No Exam General: Alert, Oriented x3 Dental: WNL Mouth Opening: Greater than 4 Fingerbreadths Neck Mobility: Normal Mallampati classification: III Thyromental Distance: greater than 6 cm Respiratory: Lungs clear Cardiovascular: Regular rate, Normal S1, Normal S2 Plan Anesthesia Type: General Consent for Procedure(s) Verified and Reviewed: Yes Code Status: Attempt Resuscitation ASA classification: 2-Mild systemic disease Is this case an emergency?: No
[2023-02-21] MEDS ORDERED: fentaNYL 100 MCG/2 ML VIAL ONE ×2 (10:28→11:42)
[2023-02-21] MEDS ORDERED: MIDAZOLAM 2 MG/2 ML VIAL ONE (10:28)
[2023-02-21] MEDS ORDERED: KETOROLAC 30 MG/ML VIAL ONE (10:46)
[2023-02-21] MEDS ORDERED: MORPHINE 2 MG/ML CARPUJECT IVP PRN (11:06)
[2023-02-21] MEDS ORDERED: NALOXONE 0.4 MG/ML VIAL IVP PRN (11:06)
[2023-02-21] MEDS ORDERED: METOCLOPRAMIDE 10 MG/2 ML VIAL IVP PRN (11:06)
[2023-02-21] MEDS ORDERED: ePHEDrine 50 MG/ML VIAL IVP PRN (11:06)
[2023-02-21] MEDS ORDERED: ATROPINE ABBOJECT 1 MG/10 ML SYRINGE IVP PRN (11:06)
[2023-02-21] MEDS ORDERED: HYDROmorphone 0.5 MG/0.5 ML SYRINGE IVP PRN (11:06)
[2023-02-21] MEDS ORDERED: ONDANSETRON 4 MG/2 ML VIAL IVP PRN (11:06)
[2023-02-21] MEDS ORDERED: fentaNYL 100 MCG/2 ML VIAL IVP PRN (11:06)
[2023-02-21] MEDS ORDERED: SILVER NITRATE APPLICATOR TOP ONE (11:19)
[2023-02-21] MEDS ORDERED: LACTATED RINGERS 200 ML IV ONE (11:20)
[2023-02-21] MEDS ORDERED: traMADol 50 MG TABLET PO PRN (11:30)
--- NOTE | 2023-02-21 11:37 | OPERATIVE REPORT ---
Operative Report - General Procedure Date: 02/21/23 Planned Procedure: Dilation and curettage Pre-Op Diagnosis: Incomplete spontaneous (miscarriage) Procedure Performed: Dilation and curettage Post Op Diagnosis: Incomplete spontaneous (miscarriage) - Procedure Note Primary Surgeon: Rosangela Garrido DO Anesthesia Provider: Elaina Zuniga CRNA Anesthesia Technique: General LMA Pathology: Products of conception, send out for karyotype testing Estimated Blood Loss (mL): 40 Indications: Incomplete spontaneous (miscarriage) Findings: Moderate amount of products of conception Complications: None - Other Other Information/Narrative: Transferred patient to OR. LMA anesthesia obtained. Placed in dorsal lithotomy position in Mac type stirrups. Prepped and draped in sterile fashion. Speculum placed. Anterior lip of cervix grasped with single tooth tenaculum. Cervix dilated to accommodate 7mm curved curette. Curette placed and POCs removed. Rotated to clear uterus. Sharp curette introduced and uterus gently cleared, minimal remaining POCs left. Suction reintroduced and uterus clear. US during procedure and endometrium lining thin post procedure. Tenaculum removed. Hemostasis. Speculum removed. Counts correct x2. Transferred to PACU in stable condition.
[2023-02-21 11:59] VITALS: O2SAT 100
[2023-02-21] MEDS ORDERED: ACETAMINOPHEN 325 MG TABLET PO SCH (12:00)
[2023-02-21] MEDS ORDERED: DOXYCYCLINE 100 MG TABLET PO SCH (12:00)
[2023-02-21] MEDS ORDERED: LACTATED RINGERS 1,000 ML IV SCH (12:00)
[2023-02-21 12:28] VITALS: BP 107/73
--- NOTE | 2023-02-21 13:37 | ANESTHESIA POST OP EVALUATION ---
Anesthesia Post Eval - Post Anesthesia Eval Vitals: Last Vital Signs Temp 36 C L 02/21/23 12:25 Pulse 72 02/21/23 12:25 Resp 15 02/21/23 12:25 BP 107/73 02/21/23 12:25 Pulse Ox 100 02/21/23 12:25 O2 Flow Rate CV Function Including HR & BP: Stable Pain Control: Satisfactory Nausea & Vomiting: Negative Mental Status: Baseline Respiratory Status: Airway Patent Hydration Status: Satisfactory Anesthesia Complications: None
== END 2023-02-21 07:57 | disposition home or self-care (01) ==
LOC: SDS 07:56
PROVIDERS: ATTEND Obstetrics & Gynecology
PROC: 10D17ZZ Extraction of Products of Conception, Retained, Via Natural or Artificial Opening (ICD-10-PCS; principal; 2023-02-21 10:00)
DX: O03.1 Delayed or excessive hemorrhage following incomplete spontaneous abortion (principal); Z87.891 Personal history of nicotine dependence
CPT/HCPCS: 59820; 84702; J7120; 36415; 84703

== ENCOUNTER 2023-11-20 08:00 | Outpatient (CLI) | payer OTHER ==
[2023-11-20 16:12] LABS: BILIRUBIN,URINE NEGATIVE (NEGATIVE); GLUCOSE, URINE (UA) NEGATIVE (NEGATIVE); KETONES,URINE (UA) NEGATIVE (NEGATIVE); LEUKOCYTE ESTERASE, URINE NEGATIVE (NEGATIVE); NITRITE,URINE NEGATIVE (NEGATIVE); OCCULT BLOOD,URINE NEGATIVE (NEGATIVE); PROTEIN,URINE NEGATIVE (NEGATIVE); UROBILINOGEN,URINE 4 E.U./dL (NORMAL)
[2023-11-20 16:21] LABS: CLARITY,URINE CLEAR (CLEAR)
[2023-11-20 16:39] LABS: BACTERIA,URINE Moderate /HPF (None Seen); RBC,URINE 0-5 /HPF (0-5); SQUAMOUS EPITHELIAL CELL,UR MOD Squamous (<= Few); WBC,URINE 0-3 /HPF (0-5)
[2023-11-20 16:40] LABS: CRYSTALS,URINE >50 Calcium Oxalate /LPF
== END 2023-11-20 23:59 | disposition home or self-care (01) ==
LOC: LAB.WC 08:00
PROVIDERS: ATTEND Obstetrics & Gynecology
DX: Z34.90 Encounter for supervision of normal pregnancy, unspecified, unspecified trimester (principal)
CPT/HCPCS: 81001; 87086

== ENCOUNTER 2023-11-22 12:33 | Outpatient (CLI) | payer OTHER ==
[2023-11-22 13:33] LABS: BASOPHILS % (AUTO) 0.2 %; EOSINOPHILS # (AUTO) 0.1 10^3/uL (0.0-0.7); EOSINOPHILS % (AUTO) 0.9 %; HCT - HEMATOCRIT 39.2 % (37.0-47.0); HGB - HEMOGLOBIN 13.6 g/dL (12.0-16.0); LYMPHOCYTES # (AUTO) 2.3 10^3/uL (1.5-3.5); LYMPHOCYTES % (AUTO) 25.9 %; MEAN CORPUSCULAR HEMOGLOBIN 30.8 pg (27.0-31.0); MEAN CORPUSCULAR HGB CONC 34.7 g/dL (32.0-36.0); MEAN CORPUSCULAR VOLUME 88.7 fL (81.0-99.0); MEAN PLATELET VOLUME 9.5 fL (7.9-10.8); MONOCYTES # (AUTO) 0.5 10^3/uL (0.0-1.0); MONOCYTES % (AUTO) 5.7 %; NEUTROPHILS # (AUTO) 5.8 10^3/uL (1.5-6.6); NEUTROPHILS % (AUTO) 67.1 %; PLT - PLATELET COUNT 246 10^3/uL (130-450); RED BLOOD COUNT 4.42 10^6/uL (4.20-5.40); RED CELL DISTRIBUTION WIDTH 11.9 % (12.0-15.0); WHITE BLOOD COUNT 8.7 x10^3/uL (4.8-10.8)
--- NOTE | 2023-11-22 14:18 | Ultrasound Report ---
PROCEDURE: OB 1st Trimester w/TV INDICATIONS: POSITIVE TEST OUTSIDE/PRIOR DATING DATA: Last menstrual period (LMP): 09/08/2023. LMP-based estimated date of delivery (NAOMI): 06/14/2024. First dating scan (date and location): This study. Estimated date of delivery (NAOMI) from first dating scan: 07/10/2024. TECHNIQUE: Real-time scanning was performed of the fetus and maternal pelvic organs, with image documentation. Endovaginal scanning was also performed to better visualize the fetus and maternal ovaries. COMPARISON: None from this . FINDINGS: Intrauterine gestational sac present. Embryo: A crown-rump length of 9 mm equates with a gestational age of 7 weeks 0 days, +/- 5 days. Heart rate: Definite cardiac activity is not yet established. Other: No perigestational fluid collection. Measurement variability in dating: +/- 4 weeks by LMP, +/- 7 days by mean sac diameter (use before 6 weeks gestation if crown-rump length not able to be measured), +/- 5 days by crown-rump length (6-12 weeks gestation). Maternal organs: Ovaries appear within normal limits. IMPRESSION: Definite cardiac activity is not identified. Follow-up OB ultrasound in 7-10 days is recommende d versus correlation with sequential quantitative beta hCG. An intrauterine gestation is present but viability is not yet established. Reviewed by: Adryan Ndiaye MD on 11/22/2023 2:17 PM PDT Approved by: Adryan Ndiaye MD on 11/22/2023 2:17 PM PDT Station ID: [id number]
[2023-11-23 04:10] LABS: HIV SCREEN 4TH GENERATION Non Reactive (Non Reactive); RPR Non Reactive (Non Reactive)
[2023-11-23 07:09] LABS: HBsAG SCREEN Negative (Negative); VARICELLA-ZOSTER AB IGG 2878 index (Immune >165)
[2023-11-26 03:07] LABS: HCV AB Non Reactive (Non Reactive)
== END 2023-11-22 12:34 | disposition home or self-care (01) ==
LOC: DI 12:33
PROVIDERS: ATTEND Obstetrics & Gynecology
DX: Z34.91 Encounter for supervision of normal pregnancy, unspecified, first trimester (principal)
CPT/HCPCS: 36415; 85025; 86592; 86762; 86787; 86803; 86850; 86900; 86901; 87340; 87389

== ENCOUNTER 2023-12-06 15:03 | Outpatient (CLI) | payer OTHER ==
--- NOTE | 2023-12-06 16:31 | Ultrasound Report ---
PROCEDURE: OB 1st Trimester w/TV INDICATIONS: SUPERVISION OF NORMAL OUTSIDE/PRIOR DATING DATA: Last menstrual period (LMP): 09/08/2023. LMP-based estimated date of delivery (NAOMI): 06/14/2024. First dating scan (date and location): 11/22/2023. Estimated date of delivery (NAOMI) from first dating scan: 07/10/2024. TECHNIQUE: Real-time scanning was performed of the fetus and maternal pelvic organs, with image documentation. Endovaginal scanning was also performed to better visualize the fetus and maternal ovaries. COMPARISON: 11/22/2023. FINDINGS: There appears to be 2 possible intrauterine poles seen on today's study not apprecia glen on the prior study. Both measure approximately 6 weeks and 5 days estimated gestational age witho ut visible cardiac activity. Other: No perigestational fluid collection. No yolk sac identified. Measurement variability in dating: +/- 4 weeks by LMP, +/- 7 days by mean sac diameter (use before 6 weeks gestation if crown-rump length not able to be measured), +/- 5 days by crown-rump length (6-12 weeks gestation). Maternal organs: Ovaries appear within normal limits. IMPRESSION: Possible twin intrauterine gestation measuring approximately 6 weeks and 5 days estimated sonographic gestational age demonstrating abnormal interval growth/progression as well as no visible cardi ac activity for either pole. Findings are possibly related to failed twin gestation. Of note, a twin gestation was not appreciated on the prior study and this may represent early state. Recommend close clinical surveillance with serial quantitative hCG measurements and follow-up imaging as needed. Reviewed by: Shaun Andujar MD on 12/06/2023 4:29 PM PDT Approved by: Shaun Andujar MD on 12/06/2023 4:29 PM PDT Station ID: [id number]
== END 2023-12-06 15:04 | disposition home or self-care (01) ==
LOC: DI 15:03
PROVIDERS: ATTEND Obstetrics & Gynecology
DX: Z34.91 Encounter for supervision of normal pregnancy, unspecified, first trimester (principal)

== ENCOUNTER 2023-12-09 09:53 | Outpatient (CLI) | payer OTHER | END 2023-12-09 09:54 | disposition home or self-care (01) | LOC: LAB 09:53 | PROVIDERS: ATTEND Nurse Practitioner | DX: Z34.90 Encounter for supervision of normal pregnancy, unspecified, unspecified trimester (principal) | CPT/HCPCS: 36415; 84702 ==

== ENCOUNTER 2023-12-11 08:51 | Outpatient (CLI) | payer OTHER | END 2023-12-11 08:52 | disposition home or self-care (01) | LOC: LAB 08:51 | PROVIDERS: ATTEND Obstetrics & Gynecology | DX: O26.21 Pregnancy care for patient with recurrent pregnancy loss, first trimester (principal) | CPT/HCPCS: 36415; 84702 ==

== ENCOUNTER 2023-12-18 08:51 | Outpatient (CLI) | payer OTHER | END 2023-12-18 08:52 | disposition home or self-care (01) | LOC: LAB 08:51 | PROVIDERS: ATTEND Obstetrics & Gynecology | DX: O26.21 Pregnancy care for patient with recurrent pregnancy loss, first trimester (principal) | CPT/HCPCS: 36415; 84702 ==

== ENCOUNTER 2023-12-19 06:32 | Day surgery (SDC) | payer OTHER ==
[2023-12-19] MEDS: LACTATED RINGERS 1,000 ML IV ONE (06:35)
--- NOTE | 2023-12-19 07:13 | ANESTHESIA ---
Pre-Anesthesia VS, & Labs - Diagnosis MISSED - Procedure D&C Height: 5 ft 3 in Weight (kg): 69.1 kg Body Mass Index: 26.9 BMI Classification: Overweight - NPO >8 hours - Is Patient ?: Yes Home Medications and Allergies Active Medications Doxycycline Hyclate 200 mg/ (Sodium Chloride) 250 mls @ 125 mls/hr IV ONCE ONE Stop: 12/19/23 09:59 No Known Home Medications 02/20/23 Allergies/Adverse Reactions: Allergies Allergy/AdvReac Type Severity Reaction Status Date / Time No Known Drug Allergies Allergy Verified 12/19/23 07:01 Anes History & Medical History - Anesthetic History Anesthesia Complications: reports: No previous complications Family history of Anesthesia Complications: Denies Family history of Malignant Hyperthermia: Denies - Medical History Cardiovascular: reports: None Pulmonary: reports: None Gastrointestinal: reports: None Urinary: reports: None Neuro: reports: None Musculoskeletal: reports: None Endocrine/Autoimmune: reports: None Blood Disorders: reports: None Skin: reports: None Smoking Status: Former smoker (vape--quit in July) Psychosocial: reports: No issues indicated History of Cancer?: No - Surgical History Gynecologic: reports: Dilation and currettage Results - EKG Results EKG Comparison: Reviewed EKG, Normal EKG Exam General: Alert, Oriented x3, Cooperative, No acute distress Dental: WNL Mouth Openin Fingerbreadth Neck Mobility: Normal Mallampati classification: II Thyromental Distance: 4-6 cm Respiratory: Lungs clear, Normal breath sounds, No respiratory distress, No accessory muscle use Cardiovascular: Regular rate, Normal S1, Normal S2, No murmurs Mental/Cognitive Status: Alert/Oriented X3, Normal for patient Cognitive Status: Within normal limits Plan Anesthesia Type: General Consent for Procedure(s) Verified and Reviewed: Yes Code Status: Attempt Resuscitation ASA classification: 1-Healthy patient Is this case an emergency?: No
[2023-12-19] MEDS ORDERED: LIDOCAINE 1%-EPI 1:100000 20 ML MDV ONE (07:18)
[2023-12-19] MEDS ORDERED: LIDOCAINE-MPF 1% 30 ML VIAL ONE (07:19)
[2023-12-19] MEDS ORDERED: DEXAMETHASONE 4 MG/ML VIAL ONE (07:25)
[2023-12-19] MEDS ORDERED: PROPOFOL 200 MG/20 ML VIAL IVP ONE (07:25)
[2023-12-19] MEDS ORDERED: ONDANSETRON 4 MG/2 ML VIAL ONE (07:25)
[2023-12-19] MEDS ORDERED: fentaNYL 100 MCG/2 ML VIAL ONE (07:25)
[2023-12-19] MEDS: DOXYCYCLINE INJ 200 MG in SODIUM CHLORIDE 0.9% 250 ML IV ONE (07:25)
[2023-12-19] MEDS ORDERED: MIDAZOLAM 2 MG/2 ML VIAL ONE (07:25)
[2023-12-19] MEDS ORDERED: LIDOCAINE-PF 2% 10 ML AMP SUBQ ONE (07:25)
[2023-12-19] MEDS: LACTATED RINGERS 750 ML IV ONE (08:26)
[2023-12-19] MEDS ORDERED: ATROPINE ABBOJECT 1 MG/10 ML SYRINGE IVP PRN (08:37)
[2023-12-19] MEDS ORDERED: ePHEDrine 50 MG/ML VIAL IVP PRN (08:37)
[2023-12-19] MEDS ORDERED: MORPHINE 2 MG/ML CARPUJECT IVP PRN (08:37)
[2023-12-19] MEDS ORDERED: fentaNYL 100 MCG/2 ML VIAL IVP PRN (08:37)
[2023-12-19] MEDS ORDERED: HYDROmorphone 0.5 MG/0.5 ML SYRINGE IVP PRN (08:37)
[2023-12-19] MEDS ORDERED: NALOXONE 0.4 MG/ML VIAL IVP PRN (08:37)
[2023-12-19] MEDS ORDERED: ONDANSETRON 4 MG/2 ML VIAL IVP PRN (08:37)
[2023-12-19] MEDS ORDERED: LACTATED RINGERS 1,000 ML IV SCH (09:00)
[2023-12-19 09:01] VITALS: O2SAT 100
--- NOTE | 2023-12-19 09:02 | ANESTHESIA POST OP EVALUATION ---
Anesthesia Post Eval - Post Anesthesia Eval Vitals: Last Vital Signs Temp 36.4 C L 12/19/23 08:53 Pulse 85 12/19/23 08:53 Resp 18 12/19/23 08:53 BP 112/61 12/19/23 08:53 Pulse Ox 100 12/19/23 08:53 O2 Flow Rate CV Function Including HR & BP: Stable Pain Control: Satisfactory Nausea & Vomiting: Negative Mental Status: Baseline Respiratory Status: Airway Patent Hydration Status: Satisfactory Anesthesia Complications: None
[2023-12-19 09:21] VITALS: BP 111/74
--- NOTE | 2023-12-19 09:28 | OPERATIVE REPORT ---
Operative Report - General Procedure Date: 12/19/23 - Other Other Information/Narrative: Operative Report DATE OF PROCEDURE: 12/19/2023 Surgeon: Carole Platt MD Assistants: none Pre-Op Diagnosis: missed Post-Op Diagnosis: Same Procedures: Suction dilation and curettage Findings: Uterus approximately 8 week size and mobile, no adnexal masses appreciated Specimens: products of conception were sent for Anora testing Anesthesia Technique: TIVA Estimated Blood Loss (mls): 25cc Blood Replacement (mls): see anesthesia record Fluid Replacement (mls): none Drains: bladder drained with red rubber catheter at completion of procedure, 25cc Complications: none Condition: stable DESCRIPTION OF PROCEDURE: The patient was brought to the operating room where she was identified and the surgical site and procedures were confirmed. She was laid on the operating room table and anesthesia was established. She was placed in the lithotomy position using Mac stirrups. An examination under anesthesia was done revealing findings as noted above. A weighted speculum was placed into the vagina and the anterior lip of the cervix was grasped with an allis clamp. The cervix was soft and dilated easily. Using sequentially larger dilators, the cervix was dilated to accommodate a number 8 flexible suction curette, which was introduced without difficulty. Suction was applied and the curette was withdrawn in a rotating fashion. This was repeated until no further material was returned. Bedside US was performed and confirmed no gestational sac with thin homonegenous appearing endometrial stripe. The allis was removed. Hemostasis noted. The speculum was removed and the patient was reexamined bimanually. The uterus was noted to be firm and normal size. The patient was returned to the supine position. She was awakened in the operating room and taken in good and stable condition to the recovery room. There were no apparent anesthetic or operative complications. Carole Platt MD
== END 2023-12-19 06:33 | disposition home or self-care (01) ==
LOC: SDS 06:32
PROVIDERS: ATTEND Obstetrics & Gynecology
DX: O02.1 Missed abortion (principal); N96 Recurrent pregnancy loss
CPT/HCPCS: 36415; 59820; 86850; 86900; 86901; J7120

== ENCOUNTER 2024-01-07 09:09 | Outpatient (CLI) | payer OTHER ==
[2024-01-07 09:52] LABS: THYROID STIMULATING HORMONE 1.24 uIU/mL (0.34-5.60)
[2024-01-07 10:05] LABS: ESTIMATED AVERAGE GLUCOSE 77 mg/dL (70-100); HEMOGLOBIN A1c% 4.3 % (4.27-6.07)
[2024-01-08 20:08] LABS: THYROGLOBULIN ANTIBODY <1.0 IU/mL (0.0-0.9); THYROID PEROXIDASE (TPO) AB <9 IU/mL (0-34)
== END 2024-01-07 09:10 | disposition home or self-care (01) ==
LOC: LAB 09:09
PROVIDERS: ATTEND Obstetrics & Gynecology
DX: O26.21 Pregnancy care for patient with recurrent pregnancy loss, first trimester (principal)
CPT/HCPCS: 36415; 83036; 84443; 85598; 85613; 85732; 86146; 86147; 86376; 86800

== ENCOUNTER 2025-03-15 19:48 | Observation (INO) ==
[2025-03-15 21:06] LABS: GLUCOSE, URINE (UA) NEGATIVE (NEGATIVE); KETONES,URINE (UA) NEGATIVE (NEGATIVE); OCCULT BLOOD,URINE NEGATIVE (NEGATIVE); SQUAMOUS EPITHELIAL CELL,UR MOD Squamous (<= Few)
[2025-03-15] MEDS ORDERED: ONDANSETRON ODT 4 MG TABLET PO PRN (22:11)
[2025-03-15] MEDS ORDERED: CALCIUM CARBONATE CHEW 500 MG TABLET PO PRN (22:11)
[2025-03-15] MEDS ORDERED: METOCLOPRAMIDE 10 MG TABLET PO PRN (22:11)
[2025-03-15] MEDS ORDERED: DOCUSATE SODIUM 100 MG CAPSULE PO PRN (22:11)
[2025-03-15] MEDS ORDERED: SODIUM CHLORIDE FLUSH 0.9% 10 ML SYRINGE IVP PRN (22:11)
[2025-03-15] MEDS ORDERED: ACETAMINOPHEN 500 MG TABLET PO PRN ×2 (22:11)
[2025-03-15] MEDS: LACTATED RINGERS 1,000 ML IV PRN (23:03)
[2025-03-15] MEDS: LACTATED RINGERS 1,000 ML IV SCH (23:03)
--- NOTE | 2025-03-16 00:16 | PROVIDER PROGRESS NOTE ---
HPI Chief Complaint: Labor Current : Her for labor check. feels like contractions for 24 hrs. no leaking. does not feel like SROM at all. no bleeding. baby moving well. no UTI sx. Current EDU 05/08/25 Gestation 32 Weeks and 2 Days Para 1 Vital Signs Temperature 36.8 C 03/15/25 20:21 Pulse Rate 98 03/15/25 20:21 Respiratory Rate 14 03/15/25 20:21 Blood Pressure 123/68 03/15/25 20:21 Procedures OB Procedure Performed: NST Diagnosis/Indication for NST: labor NST Procedure: NST Procedure Start Date 03/15/25 Start Time 19:58 Stop Time 20:19 Vibroacoustic Stimulation Used No Patient States Movement Yes Service Date of procedure: 03/15/25 Procedure Details: Reactive for of 32 weeks gestation or more. NST tracing contains at least two heart rate accelerations that are at least 15 beats per minute above the baseline rate and lasting at least 15 sec onds from onset to return to baseline within a twenty minute period. Findings: reactive NST. but contractions every 5 min and very regular. great labor pattern. cervix checked and closed. Plan Plan: Admit of observation given h/o delivery at 35 weeks and such regular painful contractions. spoke with Adonay Gonzalez MD [facility] at [facility] to discuss case. Nifedipine given. iv fluid bolus.
[2025-03-16 00:22] LABS: HCT - HEMATOCRIT 30.7 % (37.0-47.0); HGB - HEMOGLOBIN 10.3 g/dL (12.0-16.0); MEAN PLATELET VOLUME 9.6 fL (7.9-10.8); NRBC ABSOLUTE COUNT (AUTO) 0.00 x10^3/uL; NUCLEATED RED BLOOD CELLS AUTO 0.0 /100WBC; PLT - PLATELET COUNT 251 10^3/uL (130-450); RED CELL DISTRIBUTION WIDTH 12.2 % (12.0-15.0)
--- NOTE | 2025-03-16 00:27 | HISTORY & PHYSICAL EXAMINATION ---
Admit History Visit Reason Visit Reason: Contractions : 6 Premature: 1 Care: positive [facility] Risk/History: positive labor <37 weeks and Premature rupture membrane (at 35 weeks with her son.) Complications This : positive Other (? amniotic bands but had evaluation with [facility] and found to be OK. ) Smoking Status: Former smoker (vape--quit in July) Mother's Labs GBS: positive Other (collected today) HPI Current : Current EDU 05/08/25 Gestation 32 Weeks and 2 Days Para 1 Vital Signs Temperature 36.8 C 03/15/25 20:21 Pulse Rate 98 03/15/25 20:21 Respiratory Rate 14 03/15/25 20:21 Blood Pressure 123/68 03/15/25 20:21 NST Procedure NST Procedure: NST Procedure Start Date 03/15/25 Start Time 19:58 Stop Time 20:19 Vibroacoustic Stimulation Used No Patient States Movement Yes Meds/Allgy Home Medications Ambulatory Orders Medication Instructions Recorded Confirmed docosahexaenoic acid [ DHA] 1 cap PO QDAY 09/2203/03/25 aspirin 81 mg tablet,delayed 81 mg PO QDAY prevent pre eclampsia 11/12/24 5 release (Enteric Coated Aspirin) #90 tabs magnesium citrate PO 02/04/25 03/03/25 amoxicillin 500 mg capsule 500 mg PO BID 03/03/2509/22 Allergies Allergies Allergy/AdvReac Type Severity Reaction Status Date / Time No Known Drug Allergies Allergy Verified 03/03/25 13:59 PFSH Active Problems All Active Problems (Updated 03/15/25 @ 22:13 by Flakita Aguilera MD) Supervision of high risk , unspecified, third trimester (Acute) Premature uterine contractions causing threatened premature labor in third trimester (Acute) labor in third trimester (Acute) Amniotic band in second trimester (Acute) History of delivery, currently (Acute) RhD negative (Acute) Medical History Medical History History of recurrent , currently in first trimester Missed missed miscarriage Joint effusion of hand Convulsive syncope Rotator cuff syndrome of right shoulder Surgical History Surgical History Hx of dilation and curettage 2021, 2022, 2023 Family History Family History Maternal grandmother CAD (coronary artery disease) Mother BRCA gene positive Social History Social History (Updated 02/18/25 @ 13:16 by Wilson Key MD) Smoking Status: Never smoker If you are a former smoker, when did you quit? (Date/Year): 1 year ago Second hand tobacco smoke exposure: No Do you dip or chew tobacco?: No Do you vape?: No Living arrangement: At home Marital Status: Living Condition: With spouse/s.o. Support Person: Yes Physical Activity: other Level: Independent Do you feel safe in your home environment?: Yes History of physical, verbal, emotional, or financial abuse?: No ETOH Use: None Frequency: Weekly Substance Use: denies use Are you sexually active?: Yes Sexual Practice Notes: Patient is 8-9 weeks POLST Patient has POLST: No Review of Systems good movement. no fluid leaking. no bleeding. no UTI sx. drinking well. bad leg cramps better with magnesium. no fever. Physical Abdominal Exam Vital Signs: Temp Pulse Resp BP 36.8 C 98 14 123/68 03/15/25 20:21 03/15/25 20:21 03/15/25 20:21 03/15/25 20:21 Contraction Frequency (min/apart): q4-6 Contraction Intensity: positive Mild to moderate Uterine Resting Tone: positive Soft Monitoring Heart Rate Baseline: 145 Strip Review: positive Category I Vaginal Exam Membranes: positive Membranes intact Dilation (in cm): closed Effacement (%): long Station: positive -3 Cervical Position: positive Midposition Speculum Exam Speculum Exam Performed: positive Yes Findings: positive Other (no fluid seen. fibronectin collected. ) Other Notes Labor Progress Note/Additional Text: In triage for 2+ hours and no cervical change but very regular contraction pattern that is painful for her. concerning. Plan for Labor Plan For Labor I expect patient to be DC'd or transferred within 96 hours.: Yes Plan for Labor: reassess in am. if still no cervical change, she can go home. This patient was seen and examined 03/15 last at 2230. current note is a late entry from that time. Conclusion/Plan Problem List (1) Premature uterine contractions causing threatened premature labor in third trimester: Plan: admit for observation. not in labor so no need to transfer. consulted with MFM who agrees with plan. IVF, nifedipine. recommend a bath, try to relax. reassess in am. nifedipine 10 mg q 2 hrs for contractions as long as bp stays ok. if they get better, she can get off monitor. US in am to check growth. gbs collected just in case she goes into labor. Lab Results Other Lab Results: fibronectin neg. UA negative.
[2025-03-16] MEDS: SODIUM CHLORIDE FLUSH 0.9% 10 ML SYRINGE IVP SCH (03:18)
[2025-03-16 08:05] VITALS: O2SAT 99
[2025-03-16] MEDS ORDERED: FAMOTIDINE 20 MG/2 ML VIAL IVP SCH (09:00)
--- NOTE | 2025-03-16 09:56 | Discharge Summary ---
"Discharge Summary Admit Date: 03/15/25 Discharge Date: 03/16/25 Discharging Provider: Flakita Aguilera MD Code Status: Attempt Resuscitation DIAGNOSES Admission Diagnoses: threatened labor at 32 weeks gestational age. Discharge Diagnoses with Status of Each Condition: did not progress to labor, contractions subsided. anemia diagnosed. iron started. HPI History of Present Illness: with at 32 weeks presents with contractions. very regular and painful. h/o delivery at 35+ weeks. CONSULTS | PROCEDURES Consultations: by phone to [facility] at [facility] Procedures: monitoring, US HOSPITAL COURSE Hospital Course: Patient came to triage with painful regular contractions. well hydrated. did not stop. cervix was closed and remained closed. Given her history and the regularity and frequency of her contractions, she was admitted for observation. IV fluids and nifedipine were given. She got total 2 doses of 10 mg. By morning her contractions were mostly gone and she was feeling much better. She was discharged home. ALLERGIES Allergies Allergy/AdvReac Type Severity Reaction Status Date / Time No Known Drug Allergies Allergy Verified 03/16/25 09:53 MEDICATIONS Ambulatory Orders Medication Instructions Recorded Confirmed docosahexaenoic acid [ DHA] 1 cap PO QDAY 04/0 09/2203/03/25 aspirin 81 mg tablet,delayed 81 mg PO QDAY prevent pre eclampsia 11/12/24 03/03/25 release (Enteric Coated Aspirin) #90 tabs magnesium citrate PO 02/04/25 03/03/25 ferrous sulfate 325 mg (65 mg 325 mg PO Q OTHER DAY #9 0 tabs 03/16/25 iron) tablet (FeroSul) PHYSICAL EXAM AT DISCHARGE Vital Signs: Vital Signs x48h Temp Pulse Resp BP Pulse Ox 03/16/25 08:03 36.9 C 87 16 117/64 99 03/16/25 04:09 90 106/46 L appears comfortable. abdomen not tender FHT reactive no contractions on monitor. LABS 03/16/25 00:05 DIAGNOSTIC IMAGING Diagnostic Imaging Results: Prelim report reviewed FOLLOW UP Follow Up: next appt in clinic in 2 days. TIME SPENT Time Spent in Discharge (Minutes): 20 Discharge Plan Discharge Patient Disposition: Home, Self Care Condition: Stable Prescriptions: Continued docosahexaenoic acid [ DHA] 1 cap PO QDAY ferrous sulfate [FeroSul] 325 mg (65 mg iron) tablet 325 mg PO Q OTHER DAY Qty: 90 4RF Rx Instructions: best if taken in the morning. aspirin [Enteric Coated Aspirin] 81 mg tablet,delayed release (DR/EC) 81 mg PO QDAY Qty: 90 4RF magnesium citrate PO Discontinued amoxicillin 500 mg capsule 500 mg PO BID Diet: Regular Print Language: Bengali Patient Instructions: Understanding Labor Follow-up Care: Flakita Aguilera MD [Provider Admit Priv/Credential, Obstetrics/Gynecology] Vitals documented within 30 minutes of discharge?: Yes"
[2025-03-16 10:09] VITALS: BP 112/65; TEMP 98.2
--- NOTE | 2025-03-16 12:17 | Ultrasound Report ---
PROCEDURE: US OB Follow up INDICATIONS: contraction, h/o delivery. OUTSIDE/PRIOR DATING DATA: Working NAOMI: 05/08/2025 TECHNIQUE: Real-time scanning was performed of the fetus, with image documentation and biometric measurements. Endovaginal scanning: Not performed. COMPARISON: OB ultrasound 01/11/2025. FINDINGS: General: A single living intrauterine gestation is present. Presentation: Vertex Placenta: Placental position is anterior, without previa. Amniotic fluid index: 19.7 cm, within normal limits for gestational age. Largest pocket 6.3 cm. heart rate: 152 beats per minute. Maternal cervical canal: 4.1 cm long; normal length is 2.5 cm or more. biometrics: Biparietal diameter: 8.1 cm, 32 weeks 4 days. 45th percentile. Head circumference: 29.6 cm, 32 weeks 5 days. 21st percentile. Abdominal circumference: 28.8 cm, 32 weeks 6 days. 62nd percentile. Femur length: 6.4 cm, 33 weeks 0 days. 53rd percentile. Estimated gestational age from initial scan: 32 weeks 3 days. Composite gestational age from present scan: 32 weeks 6 days Estimated weight and percentile: 2061 g, 53rd percentile Measurement variability in biometric dating: +/- 10 days from 12-20 weeks gestation, +/- 2 weeks from 20-30 weeks gestation, +/- 3 weeks at 30 weeks gestation or more. Small synechiae or web at the lower uterine segment. Appears thinner. This is separate from the fetus. IMPRESSION: 1. Albarran living intrauterine at 32 weeks 6 days based on today's ultrasound. Vertex position. Fetus is in the 53rd percentile for weight. 2. Normal placenta. Amniotic fluid volume is normal. There is a small synechiae or web at the lower uterine segment which is separate from the fetus. Reviewed by: Cisco Philippe MD on 03/16/2025 11:58 AM PDT Approved by: Cisco Philippe MD on 03/16/2025 11:58 AM PDT Station ID: [id number]
== END 2025-03-16 09:48 | disposition home or self-care (01) ==
LOC: WFO 19:48 → FBP 19:48
PROVIDERS: ADMIT Obstetrics & Gynecology; ATTEND Obstetrics & Gynecology
DX: O99.013 Anemia complicating pregnancy, third trimester; O47.03 False labor before 37 completed weeks of gestation, third trimester; Z87.891 Personal history of nicotine dependence; Z3A.32 32 weeks gestation of pregnancy

== ENCOUNTER 2025-05-02 22:02 | Inpatient (IN) ==
[2025-05-02 22:44] LABS: RUPTURE OF MEMBRANES PLUS POSITIVE (NEGATIVE)
[2025-05-02] MEDS ORDERED: TRANEXAMIC ACID IN NACL 1,000 MG/100 ML BAG IV PRN (22:46)
[2025-05-02] MEDS ORDERED: SODIUM CHLORIDE FLUSH 0.9% 10 ML SYRINGE IVP PRN (22:46)
[2025-05-02] MEDS ORDERED: OXYTOCIN 10 UNIT/ML VIAL IM PRN (22:46)
[2025-05-02] MEDS ORDERED: METHYLERGONOVINE 0.2 MG/ML VIAL IM PRN (22:46)
[2025-05-02] MEDS ORDERED: TERBUTALINE 1 MG/ML VIAL SUBQ PRN (22:46)
[2025-05-02] MEDS ORDERED: fentaNYL 100 MCG/2 ML VIAL IVP PRN (22:46)
[2025-05-02] MEDS ORDERED: hydrALAZINE INJ 20 MG/ML VIAL IVP PRN (22:46)
[2025-05-02] MEDS ORDERED: CARBOPROST TROMETHAMINE 250 MCG/ML VIAL IM PRN (22:46)
[2025-05-02] MEDS ORDERED: LABETALOL 20 MG/4 ML SYRINGE IVP PRN ×3 (22:46)
--- OUTSIDE RECORDS SUMMARY | 2025-05-02 22:57 | EXTERNAL MEDICAL SUMMARY RPT | Continuity of Care Document ---
Author Organization [facility] Address [address] [place] [id number] Phone Problems date description facility 2025-02-04 10:13 Ocular pain, left eye [facility] 2025-02-04 10:13 Right upper quadrant pain [facility] 2025-02-04 10:13 Nausea [facility] 2025-02-04 10:13 Dizziness and giddiness [facility] 2025-02-04 10:13 Injury of conjunctiv a and corneal abrasion without foreign body, left eye, [facility] 2025-02-04 10:13 Unspecified injury o f right lower leg, initial encounter [facility] 2025-02-04 10:37 Supervision of high risk , unspecified, second trimester [facility] 2025-02-04 10:37 Unspecified blood type, Rh nega tive [facility] 2025-02-08 10:21 Supervision of high risk , unspecified, second trimester [facility] 2025-02-08 10:21 Encounter for superv ision of normal , unspecified, second trimester [facility] 2025-02-08 10:21 Unspecified blood type, Rh nega tive [facility] 2025-02-12 09:04 Supervision of other high risk pregnancies, unspecified trimester [facility] 2025-02-12 09:04 Supervision of high risk , unspecified, second trimester [facility] 2025-02-12 09:04 Encounter for superv ision of normal , unspecified, unspecified trimester [facility] 2025-02-12 09:04 Unspecified blood type, Rh nega tive [facility] 2025-02-13 00:03 Supervision of other high risk pregnancies, unspecified trimester [facility] 2025-02-13 00:03 Supervision of high risk , unspecified, second trimester [facility] 2025-02-13 00:03 Encounter for superv ision of normal , unspecified, unspecified trimester [facility] 2025-02-13 00:03 Unspecified blood type, Rh nega tive [facility] 2025-02-17 13:35 Supervision of high risk , unspecified, second trimester [facility] 2025-02-18 00:02 Encounter for immunization [facility] 2025-02-18 00:02 Unspecified blood type, Rh nega tive [facility] 2025-02-18 11:49 Encounter for immunization win[facility] 2025-02-18 11:49 Unspecified blood type, Rh nega tive [facility] 2025-02-22 07:47 Supervision of high risk , unspecified, third trimester [facility] 2025-02-22 07:47 Encounter for immunization winstno cuenca [facility] 2025-02-22 07:47 Unspecified blood type, Rh nega tive roxanne [facility] 2025-03-15 20:28 labor without delivery, third trimester [facility] 2025-03-15 22:31 Supervision of other high risk pregnancies, unspecified trimester [facility] 2025-03-15 22:31 False labor before 3 7 completed weeks of gestation, third trimester [facility] 2025-03-15 22:31 labor without delivery, third trimester [facility] 2025-03-16 08:26 Supervision of other high risk pregnancies, unspecified trimester [facility] 2025-03-16 08:26 False labor before 3 7 completed weeks of gestation, third trimester [facility] 2025-03-16 08:26 labor without delivery, third trimester [facility] 2025-03-16 09:41 Supervision of other high risk pregnancies, unspecified trimester [facility] 2025-03-16 09:41 False labor before 3 7 completed weeks of gestation, third trimester [facility] 2025-03-16 09:41 labor without delivery, third trimester [facility] 2025-03-16 09:47 Supervision of other high risk pregnancies, [facility] 2025-03-16 09:47 False labor before 3 7 completed weeks of gestation, third trimester [facility] 2025-03-16 09:47 labor without delivery, third trimester [facility] 2025-03-16 09:48 Supervision of other high risk pregnancies, unspecified trimester [facility] 2025-03-16 09:48 False labor before 3 7 completed weeks of gestation, third trimester [facility] 2025-03-16 09:48 labor without delivery, third trimester [facility] 2025-03-16 09:53 Supervision of other high risk pregnancies, unspecified trimester [facility] 2025-03-16 09:53 False labor before 3 7 completed weeks of gestation, third trimester [facility] 2025-03-16 09:53 labor without delivery, third trimester [facility] 2025-03-17 14:55 Encounter for superv ision of normal , unspecified, unspecified trimester [facility] 2025-03-19 15:13 Other specified dise ases and conditions complicating [facility] 2025-03-19 15:14 Encounter for superv ision of normal , unspecified, unspecified trimester [facility] 2025-04-07 10:23 Supervision of pregn arabella with history of pre-term labor, third trimester [facility] 2025-04-21 13:57 Encounter for immunization [facility] 2025-04-26 12:33 Anemia complicating , third trimester [facility] 2025-04-26 12:33 Encounter for immunization [employer] [facility] 2025-04-30 08:22 Supervision of other high risk pregnancies, third trimester [facility] Results/Labs test date facility value unit notes Result panel 1 HGB - HEMOGLOBIN 2025-02-12 10:14 [facility] 11.8 g/dl (missing) RED CELL DISTRIBUTION WIDTH 2025-02-12 10:14 [facility] 12.2 % (missing) GLUCOSE,1H PP 50GM DOSE 2025-02-12 10:14 [facility] 130 mg/dl 50g Challenge 1 hr post Glucose < 140 mg/dL Reference: [place] [employer] As of December 2022 testing method has changed, this may include reference ranges. WEIGHT 2025-02-12 10:14 [facility] 158 lbs (missing) AFP VALUE 2025-02-12 10:14 [facility] 158.5 ng/ml (missing) PLT - PLATELET COUNT 2025-02-12 10:14 [facility] 221 10 3/ul (missing) GEST. AGE ON COLLECTION DATE 2025-02-12 10:14 [facility] 27.9 weeks (missing) RED BLOOD COUNT 2025-02-12 10:14 [facility] 3.76 10 6/ul (missing) MEAN CORPUSCULAR HEMOGLOBIN 2025-02-12 10:14 [facility] 31.4 pg (missing) HCT - HEMATOCRIT 2025-02-12 10:14 [facility] 33.7 % (missing) MEAN CORPUSCULAR HGB CONC 2025-02-12 10:14 [facility] 35.0 g/dl (missing) MATERNAL AGE AT NAOMI 2025-02-12 10:14 [facility] 34.7 yr (missing) MEAN CORPUSCULAR VOLUME 2025-02-12 10:14 [facility] 89.6 fl (missing) MEAN PLATELET VOLUME 2025-02-12 10:14 [facility] 9.1 fl (missing) WHITE BLOOD COUNT 2025-02-12 10:14 [facility] 9.2 x10 3/ul (missing) RACE 2025-02-12 10:14 [facility] (missing) (missing) INTERPRETATION 2025-02-12 10:14 [facility] Comment (missing) Interpretation: An interpretation CANNOT be provided for this patient due to one of the following reasons: 1. Gestational age is <15 weeks. Please submit a second sample at the optimum gestational age for screening (16-18 weeks). OR 2. Gestational age is greater than 23 weeks. COMMENTS 2025-02-12 10:14 [facility] Comment (missing) Kristie Willard, Ph.D., [facility] Director References: Available Upon Request. Multiples Of Median Cutoffs For AFP Elevations Albarran 2.5 Black 2.8 IDD 2.0 Twins 4.5 Abbreviation Definitions IDD - Insulin Dep Diabetes OSBR - Open Spina Bifida Risk For further inquiries contact [employer] at [phone]. This test was developed and its performance characteristics determined by [facility]. It has not been cleared or approved by the Food and Drug Administration. Performed at: - [facility] [address] [place], [place] [id number] [employer] Car Mechanic: Kenia Cleaning [facility], Phone: [phone] GESTAT. AGE METHOD 2025-02-12 10:14 [facility] LMP (missing) 08/01/2024 Recalculations are not recommended when gestational dating by LMP and ultrasound are within 10 days. INSULIN DEP DIABETES 2025-02-12 10:14 [facility] No (missing) (missing) MULTIPLE GESTATION 2025-02-12 10:14 [facility] No (missing) (missing) RPR 2025-02-12 10:14 [facility] Non Reactive (missing) Performed at: [facility] [id number] [employer]ic: Rakesh Russell MD, Phone: [phone] RESULTS 2025-02-12 10:14 [facility] Report (missing) N [id number] N LMP 18.9 [id number] 6 18 N [id number] 1 N 158 N N N N N AFP MOM 2025-02-12 10:14 [facility] See interpretatio n. (missing) (missing) OPEN SPINA BIFIDA RISK 1 IN 2025-02-12 10:14 [facility] See interpretatio n. (missing) (missing) TEST RESULTS 2025-02-12 10:14 [facility] See interpretatio n. (missing) (missing) Result panel 2 WBC,URINE 2025-03-15 20:30 [facility] 0-3 /hpf (missing) RBC,URINE 2025-03-15 20:30 [facility] 0-5 /hpf (missing) UROBILINOGEN,UR INE 2025-03-15 20:30 [facility] 0.2 (NORMAL) e.u./dl (missing) SPECIFIC GRAVITY,URINE 2025-03-15 20:30 [facility] 1.015 (missing ) (missing) PH,URINE 2025-03-15 20:30 [facility] 6.5 ph (missing) CLARITY,URINE 2025-03-15 20:30 [facility] CLEAR (missing ) (missing) CUL, URINE 2025-03-15 20:30 [facility] CXPCULTURE IN PROGRESS. RESULTS TO FOLLOW. (missing ) (missing) BACTERIA,URINE 2025-03-15 20:30 [facility] Few /hpf (missing) CUL, URINE 2025-03-15 20:30 [facility] LPOLYLESS THAN 10,000 COLONIES/ML polymicrobial growth including (missing ) (missing) CUL, URINE 2025-03-15 20:30 [facility] LPOLYcontamination. (missing ) (missing) CUL, URINE 2025-03-15 20:30 [facility] LPOLYpotential pathogens. This is suggestive of skin or other (missing ) (missing) SQUAMOUS EPITHELIAL CELL,UR 2025-03-15 20:30 [facility] MOD Squamous (missing ) (missing) LEUKOCYTE ESTERASE, URINE 2025-03-15 20:30 [facility] NEGATIVE (missing ) (missing) NITRITE,URINE 2025-03-15 20:30 [facility] NEGATIVE (missing ) (missing) OCCULT BLOOD,URINE 2025-03-15 20:30 [facility] NEGATIVE (missing ) (missing) BILIRUBIN,URINE 2025-03-15 20:30 [facility] NEGATIVE (missing ) Bilirubin can be influenced by color interference. Please correlate positive results with clinical presentation GLUCOSE, URINE (UA) 2025-03-15 20:30 [facility] NEGATIVE mg/dl (missing) KETONES,URINE (UA) 2025-03-15 20:30 [facility] NEGATIVE mg/dl (missing) PROTEIN,URINE 2025-03-15 20:30 [facility] NEGATIVE mg/dl (missing) COLOR,URINE 2025-03-15 20:30 [facility] YELLOW (missing ) (missing) Result panel 3 FIBRONECTIN (fFN), RAPID 2025-03-15 20:33 [facility] NEGATIVE (missing) (missing) Result panel 4 GBSPCR,REFLEX IF PEN ALLERGIC 2025-03-15 22:45 [facility] NEGATIVE (missing) (missing) Result panel 5 NUCLEATED RED BLOOD CELLS AUTO 2025-03-16 00:05 [facility] 0.0 /100wbc (missing) BASOPHILS # (AUTO) 2025-03-16 00:05 [facility] 0.0 10 3/ul (missing) NRBC ABSOLUTE COUNT (AUTO) 2025-03-16 00:05 [facility] 0 .00 x10 3/ul (missing) EOSINOPHILS # (AUTO) 2025-03-16 00:05 [facility] 0.1 10 3/ul (missing) MONOCYTES # (AUTO) 2025-03-16 00:05 [facility] 0.8 10 3/ul (missing) HGB - HEMOGLOBIN 2025-03-16 00:05 [facility] 10.3 g /dl (missing) WHITE BLOOD COUNT 2025-03-16 00:05 [employer] [facility] 10.6 x10 3/ul (missing) RED CELL DISTRIBUTION WIDTH 2025-03-16 00:05 [facility] 12.2 % (missing) LYMPHOCYTES # (AUTO) 2025-03-16 00:05 [facility] 2.4 10 3/ul (missing) PLT - PLATELET COUNT 2025-03-16 00:05 [facility] 251 10 3/ul (missing) MEAN CORPUSCULAR HEMOGLOBIN 2025-03-16 00:05 [facility] 29.1 pg (missing) RED BLOOD COUNT 2025-03-16 00:05 [facility] 3.54 10 6/ul (missing) HCT - HEMATOCRIT 2025-03-16 00:05 [facility] 30.7 % (missing) MEAN CORPUSCULAR HGB CONC 2025-03-16 00:05 [facility] 33 .6 g/dl (missing) NEUTROPHILS # (AUTO) 2025-03-16 00:05 [facility] 7.3 10 3/ul (missing) MEAN CORPUSCULAR VOLUME 2025-03-16 00:05 [facility] 86.7 fl (missing) MEAN PLATELET VOLUME 2025-03-16 00:05 [facility] 9.6 fl (missing) Social History date description facility
[2025-05-02 23:28] LABS: HCT - HEMATOCRIT 28.3 % (37.0-47.0); HGB - HEMOGLOBIN 9.0 g/dL (12.0-16.0); MEAN PLATELET VOLUME 10.1 fL (7.9-10.8); NRBC ABSOLUTE COUNT (AUTO) 0.00 x10^3/uL; NUCLEATED RED BLOOD CELLS AUTO 0.0 /100WBC; PLT - PLATELET COUNT 242 10^3/uL (130-450); RED CELL DISTRIBUTION WIDTH 13.4 % (12.0-15.0)
[2025-05-03] MEDS: LACTATED RINGERS 1,000 ML IV PRN (00:11)
[2025-05-03 00:18] LABS: ALT ALANINE AMINOTRANSFERASE 5.0 IU/L (10-60); AST ASPARTATE AMINOTRANSFERASE 7.0 IU/L (10-42); BUN - BLOOD UREA NITROGEN 5.0 mg/dL (6-20); CARBON DIOXIDE - CO2 15.0 mmol/L (21-32); CREATININE 0.2 mg/dL (0.6-1.3); GFR - MDRD 404.0 (>89)
[2025-05-03 00:49] LABS: VBG PH 7.468 (7.31-7.41)
[2025-05-03 01:05] LABS: ALT ALANINE AMINOTRANSFERASE 6.0 IU/L (10-60); AST ASPARTATE AMINOTRANSFERASE 10.0 IU/L (10-42); BUN - BLOOD UREA NITROGEN 6.0 mg/dL (6-20); CARBON DIOXIDE - CO2 21.0 mmol/L (21-32); CREATININE 0.4 mg/dL (0.6-1.3); GFR - MDRD 182.0 (>89)
--- NOTE | 2025-05-03 02:26 | HISTORY & PHYSICAL EXAMINATION ---
Admit History Visit Reason Visit Reason: Contractions and Membranes rupture : 6 Parity: 1 Care: positive [facility] Smoking Status: Never smoker Other Maternal History Other Maternal History: presents with SROM and early labor. Specific Issues/Plans RH Negative - Rhogam given at 28wks History of PPROM -35 weeks 2 days, Delivered in [place]. Incomplete anatomy scan: Repeat ordered Follow-up on cardiac views and cardiac outflow tracts. -MFM not concerned about amniotic band. Large enough now will likely not be an issue. LMP: 08/01/2024 NAOMI by LMP: 05/08/2025 US:10/26/2024 @ 12+6 NAOMI 05/04/25, c/w LMP Final NAOMI: 05/08/2025 Pre- Weight: 157 lb BMI: 27.8 Blood type: O- RHOGAM AT 28 given 02/17 nemo Antibody: NEGATIVE CBC: H/H/PLT- 14.0/38.0/234 RUB:immune VZV:immune HBsAg: negative HepC: non reactive RPR/AB-EIA:non reactive HIV:non reactive PAP:03/02/2020 NILM HPV negative GC/CT:11/12 HSV: denies Genetic testing: NIPT- negative AFP-reminded 12/11 FAS:scheduled 12/22 Placenta: anterior without previa Cord: 3VC CHRISTINE: 13.4cm 39% EFW: 395g 78% 50gm OGCT:130 3HR GTT: TDAP:02/17 Flu shot- 04/21/25 Breast Pump:already working on it rhogam 02/17 Antibody screen:NEGATIVE RPR:NR 3rd trimester CBC: 11.8/33.7/221 GBS: Negative RSV: 03/17 Delivery plan: Contraception: NFP OB Visit Log Initial Weight: 153 lb 12.8 oz HPI Current : Vital Signs Temperature 36.7 C 05/03/25 01:00 Pulse Rate 87 05/03/25 01:00 Respiratory Rate 16 05/03/25 01:00 Blood Pressure 106/60 05/03/25 01:00 NST Procedure NST Procedure: not indictated Meds/Allgy Home Medications Ambulatory Orders Medication Instructions Recorded Confirmed docosahexaenoic acid [ DHA] 1 cap PO QDAY 09/2204/28/25 aspirin 81 mg tablet,delayed 81 mg PO QDAY prevent pre eclampsia 11/12/24 04/28/25 release (Enteric Coated Aspirin) #90 tabs magnesium citrate PO 02/04/25 04/28/25 ferrous sulfate 325 mg (65 mg 325 mg PO Q OTHER DAY #9 0 tabs 03/16/25 04/28/25 iron) tablet (FeroSul) Allergies Allergies Allergy/AdvReac Type Severity Reaction Status Date / Time No Known Drug Allergies Allergy Verified 04/28/25 08:59 PFSH Active Problems All Active Problems (Updated 05/03/25 @ 02:30 by Flakita Aguilera MD) Anemia affecting in third trimester (Acute) Supervision of high risk , unspecified, third trimester (Acute) Amniotic band in second trimester (Acute) History of delivery, currently (Acute) RhD negative (Acute) Medical History Medical History History of recurrent , currently in first trimester Missed missed miscarriage Joint effusion of hand Convulsive syncope Rotator cuff syndrome of right shoulder Surgical History Surgical History Hx of dilation and curettage 2021, 2022, 2023 Family History Family History Maternal grandmother CAD (coronary artery disease) Mother BRCA gene positive Social History Social History (Updated 02/18/25 @ 13:16 by Wilson Key MD) Smoking Status: Never smoker If you are a former smoker, when did you quit? (Date/Year): 1 year ago Second hand tobacco smoke exposure: No Do you dip or chew tobacco?: No Do you vape?: No Living arrangement: At home Marital Status: Living Condition: With spouse/s.o. Support Person: Yes Physical Activity: other Level: Independent Do you feel safe in your home environment?: Yes History of physical, verbal, emotional, or financial abuse?: No ETOH Use: None Frequency: Weekly Substance Use: denies use Are you sexually active?: Yes Sexual Practice Notes: Patient is 8-9 weeks POLST Patient has POLST: No Review of Systems no headache, no n/v. no diarrhea. feels pretty well. no fever. Physical Abdominal Exam Vital Signs: Temp Pulse Resp BP 36.7 C 87 16 106/60 05/03/25 01:00 05/03/25 01:00 05/03/25 01:00 05/03/25 01:00 Contraction Intensity: positive Mild Uterine Resting Tone: positive Soft Monitoring Heart Rate Baseline: 135 Strip Review: positive Category I Presentation Presentation: positive Vertex Vaginal Exam Membranes: positive Membranes ruptured Dilation (in cm): 1 per RN Speculum Exam Speculum Exam Performed: positive No Plan for Labor Plan For Labor I expect patient to be DC'd or transferred within 96 hours.: Yes Plan for Labor: admit for labor at term. will augment with pitocin as needed but for now seems to starting labor on her own. gbs is negative. Conclusion/Plan Problem List (1) Anemia affecting in third trimester: Plan: will type and cross for 2 units given very low hb. (2) RhD negative: Lab Results Lab results reviewed: Yes 05/02/25 23:10 05/03/25 00:42 Other Lab Results: cmp first time had very abnormal results. repeated and pretty normal.
[2025-05-03] MEDS ORDERED: LIDOCAINE 2%-EPI 1:100000 20 ML MDV ONE (05:28)
[2025-05-03] MEDS ORDERED: ROPIVACAINE 0.2% 200 MG/100 ML BAG EP ONE (05:28)
[2025-05-03] MEDS ORDERED: PHENYLEPHRINE HCL 0.5 MG/5 ML AMPULE ONE (05:51)
[2025-05-03] MEDS ORDERED: ONDANSETRON 4 MG/2 ML VIAL ONE (06:07)
[2025-05-03] MEDS ORDERED: NALOXONE 0.4 MG/ML VIAL IVP PRN ×2 (06:28→17:35)
--- NOTE | 2025-05-03 06:29 | ANESTHESIA PROCEDURE NOTE ---
Pre-Anesthesia VS, & Labs Diagnosis Surgical Diagnosis:: active labor Procedure Procedure: vaginal delivery Vitals Vital Signs: Temp Pulse Resp BP 36.6 C 96 18 113/61 05/03/25 05:00 05/03/25 05:00 05/03/25 05:00 05/03/25 05:00 NPO NPO: Other (clear liquids) Is Patient ?: Yes Lab Results Current Lab Results: Laboratory Tests 05/03/25 00:42: VBG pH 7.468 H, Ionized Calcium 1.19, Sodium 132 L, Potassium 3.8, Chloride 104, Carbon Dioxide 21, Anion Gap 7.0, BUN 6, Creatinine 0.4 L, Estimated GFR (MDRD) 182, Glucose 86, Calcium 8.7, Magnesium 2.0, Ferritin 3.9 L , Total Bilirubin 0.3, AST 10, ALT 6 L, Alkaline Phosphatase 179 H, Total Protein 6.6, Albumin 3.5, Globulin 3.1, Albumin/Globulin Ratio 1.1 05/02/25 23:10: WBC 8.5, RBC 3.47 L, Hgb 9.0 L, Hct 28.3 L, MCV 81.6, MCH 25.9 L , MCHC 31.8 L, RDW 13.4, Plt Count 242, MPV 10.1, Neut # (Auto) 5.7, Lymph # (Auto) 2.0, [place] # (Auto) 0.5, Eos # (Auto) 0.1, Baso # (Auto) 0.0, Absolute Nucleated RBC 0.00, Nucleated RBC % 0.0, Sodium 137, Potassium 2.7 L, Chloride 116 H, Carbon Dioxide 15 L, Anion Gap 6.0, BUN 5 L, Creatinine 0.2 L, Estimated GFR (MDRD) 404, Glucose 72 L, Calcium 6.1 L*, Total Bilirubin 0.3, AST 7 L, ALT 5 L, Alkaline Phosphatase 129 H, Total Protein 4.8 L, Albumin 2.6 L, Globulin 2.2, Albumin/Globulin Ratio 1.2, Blood Type O NEGATIVE, Antibody Screen NEGATIVE, Crossmatch IS Only See Detail Lab results reviewed: Yes 05/02/25 23:10 05/03/25 00:42 Meds/Allgy Home Medications Ambulatory Orders Medication Instructions Recorded Confirmed docosahexaenoic acid [ DHA] 1 cap PO QDAY 09/2204/28/25 aspirin 81 mg tablet,delayed 81 mg PO QDAY prevent pre eclampsia 11/12/24 04/28/25 release (Enteric Coated Aspirin) #90 tabs magnesium citrate PO 02/04/25 04/28/25 ferrous sulfate 325 mg (65 mg 325 mg PO Q OTHER DAY #9 0 tabs 03/16/25 04/28/25 iron) tablet (FeroSul) Allergies Allergies Allergy/AdvReac Type Severity Reaction Status Date / Time No Known Drug Allergies Allergy Verified 04/28/25 08:59 PFSH Active Problems All Active Problems (Updated 05/03/25 @ 02:30 by Flakita Aguilera MD) Anemia affecting in third trimester (Acute) Supervision of high risk , unspecified, third trimester (Acute) Amniotic band in second trimester (Acute) History of delivery, currently (Acute) RhD negative (Acute) Medical History Medical History History of recurrent , currently in first trimester Missed missed miscarriage Joint effusion of hand Convulsive syncope Rotator cuff syndrome of right shoulder Surgical History Surgical History Hx of dilation and curettage 2021, 2022, 2023 Family History Family History Maternal grandmother CAD (coronary artery disease) Mother BRCA gene positive Social History Social History (Updated 02/18/25 @ 13:16 by Wilson Key MD) Smoking Status: Never smoker If you are a former smoker, when did you quit? (Date/Year): 1 year ago Second hand tobacco smoke exposure: No Do you dip or chew tobacco?: No Do you vape?: No Living arrangement: At home Marital Status: Living Condition: With spouse/s.o. Support Person: Yes Physical Activity: other Level: Independent Do you feel safe in your home environment?: Yes History of physical, verbal, emotional, or financial abuse?: No ETOH Use: None Frequency: Weekly Substance Use: denies use Are you sexually active?: Yes Sexual Practice Notes: Patient is 8-9 weeks POLST Patient has POLST: No POLST CPR Status: Attempt Resuscitation (CPR) Level of Medical Intervention: Full Treatment Anesthesia Exam (Expanded) Exam General: Alert, Oriented x3 and Cooperative Dental: WNL Mouth Openin Fingerbreadth Neck Mobility: Normal Mallampati classification: II Thyromental Distance: 4-6 cm Exam Exam Vital Signs: Vital Signs x48h Temp Pulse Resp BP BP 05/03/25 05:00 36.6 C 96 18 113/61 05/03/25 03:10 36.7 C 105 H 17 119/73 05/03/25 01:00 36.7 C 87 16 106/60 05/03/25 00:00 36.6 C 96 17 118/79 05/02/25 22:32 36.9 C 98 18 121/85 Plan Plan Anesthesia Type: Epidural Consent for Procedure(s) Verified and Reviewed: Yes Code Status: Attempt Resuscitation ASA Classification ASA classification: 2-Mild systemic disease Is this case an emergency?: No
[2025-05-03] MEDS: ONDANSETRON 4 MG/2 ML VIAL IVP PRN (06:49)
[2025-05-03] MEDS: ePHEDrine 50 MG/ML VIAL IVP PRN (08:23)
[2025-05-03] MEDS: SODIUM CHLORIDE FLUSH 0.9% 10 ML SYRINGE IVP SCH (08:28)
--- NOTE | 2025-05-03 09:19 | PROVIDER PROGRESS NOTE ---
Labor Progress Note Labor Progress Note Labor Progress Note/Additional Text: 140 beats minute baseline, minimal variability, accelerations present, no decelerations. Category 2. Contractions spaced out. Did have moderate variability, but decreases with periods of hypotension which started after epidural. Improved now, but will continue to monitor. Will start oxytocin for labor augmentation after discussion. Now approximately 13 hours post rupture. Intermittent category 2 tracing, but overall reassuring when blood pressure is normal.
[2025-05-03] MEDS: OXYTOCIN/SODIUM CHLORIDE 500 ML IV PRN (09:22)
[2025-05-03] MEDS: OXYTOCIN/SODIUM CHLORIDE 500 ML IV SCH (09:22)
[2025-05-03] MEDS: ROPIVACAINE 0.2% 200 MG/100 ML BAG EP PRN (13:50)
[2025-05-03] MEDS ORDERED: fentaNYL 100 MCG/2 ML VIAL ONE (15:13)
--- NOTE | 2025-05-03 16:31 | MISCELLANEOUS PROVIDER NOTE ---
Miscellaneous Provider Note - Note: Called as patient complaining of pain, had decreased epidural rate this am to 8cc/hr due to hypotension and ephedrine need. Now 8cm with BP 120's, epidural back to 10 cc/hr, fentanyl 100mcg pluse 5cc bag solution bolus.
[2025-05-03] MEDS ORDERED: LABETALOL 5 MG/1 ML 20 ML MDV IVP PRN (17:35)
[2025-05-03] MEDS ORDERED: WITCH HAZEL/GLYCERIN 1 PAD TOP PRN (17:35)
[2025-05-03] MEDS ORDERED: hydrALAZINE INJ 20 MG/ML VIAL IVP PRN ×2 (17:35)
[2025-05-03] MEDS ORDERED: OXYTOCIN/SODIUM CHLORIDE 500 ML IV PRN (17:35)
[2025-05-03] MEDS ORDERED: ONDANSETRON 4 MG/2 ML VIAL IVP PRN (17:35)
[2025-05-03] MEDS ORDERED: HYDROCORTISONE 1% CREAM 28 GM TUBE TOP PRN (17:35)
[2025-05-03] MEDS ORDERED: LABETALOL 20 MG/4 ML SYRINGE IVP PRN ×2 (17:35)
--- NOTE | 2025-05-03 17:38 | DELIVERY NOTE ---
OB Labor and Delivery Note Labor Labor: Augmented by oxytocin Infant Delivery Method Infant Delivery Method: Spontaneous vaginal delivery Presentation Presentation: DEVON - left occiput anterior Nuchal Cord Nuchal Cord: None Amniotic Fluid Description Amniotic Fluid Description: Clear Laceration Laceration: 1st degree Suture Suture Type: Vicryl Suture Size: 3-0 : Placed in direct skin contact with mother and [place] used Cord Cord: 3 vessels Placenta Placenta: Intact Estimated Blood Loss Estimated Blood Loss (in cc): 250 Post Delivery Events Post Delivery Events: No post delivery events Delivery Comments (Free Text/Narrative) Delivery Comments (Free Text/Narrative): Preoperative Diagnoses 39 weeks gestation Spontaneous rupture membranes Advanced maternal age Rh- Postoperative Diagnoses Same Delivery of live grene Status post spontaneous vaginal delivery Summary Patient presented at 39 weeks with spontaneous rupture of membranes and contractions. She then received an epidural for pain control. She then stopped making change, so augmentation with oxytocin was started. She did have some hypotension after epidural. Overall category 1 with periods of category 2, mostly related to hypotension. She progressed until complete and starting to push. Delivery Summary: Patient was placed in the dorsal lithotomy position. Upon maternal pushing the head was delivered atraumatically followed by the anterior shoulder, posterior shoulder, then the remainder of the infant's body. A female infant was delivered with APGARS of 9 at 1 minute and 9 at 5 minutes. The was placed on its mother's chest . After the cord finished pulsating, the umbilical cord was clamped times two and cut. The placenta delivered intact with three vessel cord. Placenta was not sent to pathology. Oxytocin was administered. Uterine massage was performed until uterus was deemed firm. Upon inspection of the perineum, she had a small first-degree laceration which was repaired with 2 [id number] stitches of 3-0 Vicryl. Upon re-inspection the patient was hemostatic. Uterus again massaged and found to be firm. Needle and sponge counts were correct. Patient was stable and allowed to recover in L&D room. was stable and remained in room with mother. weight is pending at this time.
[2025-05-03] MEDS: IBUPROFEN 600 MG TABLET PO PRN (18:05)
[2025-05-03] MEDS: ACETAMINOPHEN 500 MG TABLET PO PRN (19:34)
[2025-05-03] MEDS: DOCUSATE SODIUM 100 MG CAPSULE PO SCH (23:47)
[2025-05-03] MEDS: RHO(D) IMMUNE GLOBULIN 300 MCG SYRINGE IVP ONE (23:48)
[2025-05-04 04:09] VITALS: O2SAT 98
[2025-05-04] MEDS: SIMETHICONE CHEW 80 MG TABLET PO PRN (09:11)
--- NOTE | 2025-05-04 13:41 | PHARMACY PROGRESS NOTE ---
Best Possible Medication History Admit Date and Time: 05/02/25 [id number] Home Medications Medication Instructions Recorded Confirmed Type docosahexaenoic acid 1 cap PO DAILY 10/01/2410/23 History ferrous sulfate 325 mg (65 mg 325 mg PO Q OTHER DAY #9 0 tabs 03/16/25 05/04/25 Rx iron) tablet (FeroSul) magnesium citrate 100 mg tablet 100 mg PO DAILY 05/04/25 History Processed by: Pharmacy Medications reviewed in ED?: No Medication History completed: Yes Patient Interview: Pt unable to participate (Sleeping) Secondary Source(s): Spouse/Significant other, Physician records and Insurance records [facility] Statement: As the person ultimately responsible for medication therapy, providers are able to order a medication from an existing home medication list in [employer] via the "Reconcile Routine" prior to Confirmation of that medication by technician support association. Such practice is discouraged except when the physician, in their clinical ju dgment, deems that a medical need exists for a medication without regard to previous use.
--- NOTE | 2025-05-04 15:30 | Discharge Summary ---
"Discharge Summary Admit Date: 05/02/25 Discharge Date: 05/04/25 Discharging Provider: Dr. Jocelyn Napoles Primary Care Provider: Dr. Wilson Key Code Status: Attempt Resuscitation Discharge Facility Name: [facility] DIAGNOSES Admission Diagnoses: Abdominal pain , third trimester Term rupture of membranes at 39 wks Discharge Diagnoses with Status of Each Condition: Same, now s/p vaginal delivery HPI History of Present Illness: Patient is a 34 yo who presented with labor and rupture of membranes. Specific Issues/Plans RH Negative - Rhogam given at 28wks History of PPROM -35 weeks 2 days, Delivered in [place]. Incomplete anatomy scan: Repeat ordered Follow-up on cardiac views and cardiac outflow tracts. -MFM not concerned about amniotic band. Large enough now will likely not be an issue. LMP: 08/01/2024 NAOMI by LMP: 05/08/2025 US:10/26/2024 @ 12+6 NAOMI 05/04/25, c/w LMP Final NAOMI: 05/08/2025 Pre- Weight: 157 lb BMI: 27.8 Blood type: O- RHOGAM AT 28 given 02/17 nemo Antibody: NEGATIVE CBC: H/H/PLT- 14.0/38.0/234 RUB:immune VZV:immune HBsAg: negative HepC: non reactive RPR/AB-EIA:non reactive HIV:non reactive PAP:03/02/2020 NILM HPV negative GC/CT:11/12 HSV: denies Genetic testing: NIPT- negative AFP-reminded 12/11 FAS:scheduled 12/22 Placenta: anterior without previa Cord: 3VC CHRISTINE: 13.4cm 39% EFW: 395g 78% 50gm OGCT:130 3HR GTT: TDAP:02/17 Flu shot- 04/21/25 Breast Pump:already working on it rhogam 02/17 Antibody screen:NEGATIVE RPR:NR 3rd trimester CBC: 11.8/33.7/221 GBS: Negative RSV: 03/17 Delivery plan: Contraception: NFP CONSULTS | PROCEDURES Consultations: None Procedures: Spontaneous vaginal delivery, epidural HOSPITAL COURSE Hospital Course: Patient presented at 39 weeks with spontaneous rupture of membranes and contractions. She then received an epidural for pain control and did have some transient hypotension after placement. Labor was subsequently augment with oxytocin. FHT was cat 1-2 during labor.. She progressed to complete and had an uncomplicated with repair of small first degree laceration. Blood loss was minimal. , patient did well. She received Rhogam for baby blood type O pos. She was discharged home on PPD #1, ambulating, voiding, tolerating regular diet, and having decreasing lochia with no pain concerns. Baby was at the bedside and doing well. - Reviewed expectations and bleeding/infection precautions - Discussed limitations - No meds prescribed. Pt has OTC Tylenol and Motrin for prn use. Cont iron supplementation. - F/u 6 wks for visit. Call clinic to schedule. - Contraception: NFP ALLERGIES Allergies Allergy/AdvReac Type Severity Reaction Status Date / Time No Known Drug Allergies Allergy Verified 04/28/25 08:59 MEDICATIONS Ambulatory Orders Medication Instructions Recorded Confirmed docosahexaenoic acid 1 cap PO DAILY 10/01/2410/23 ferrous sulfate 325 mg (65 mg 325 mg PO Q OTHER DAY #9 0 tabs 03/16/25 05/04/25 iron) tablet (FeroSul) magnesium citrate 100 mg tablet 100 mg PO DAILY 05/04/25 PHYSICAL EXAM AT DISCHARGE Vital Signs: Vital Signs x48h Temp Pulse Resp BP Pulse Ox 05/04/25 12:11 36.9 C 80 18 117/68 98 05/04/25 08:00 36.8 C 84 16 121/78 General Appearance: positive No acute distress and Alert Respiratory: positive No respiratory distress and Breath sounds nml Cardiovascular: positive Regular rate & rhythm Abdomen: positive Non-tender and Other (Fundus firm at U-1) Skin: positive Color nml Extremities: positive Full ROM and Nml appearance; negative Pedal edema Neurologic/Psychiatric: positive Oriented x3 and Mood/affect nml LABS 05/02/25 23:10 05/03/25 00:42 QUALITY (Female Hip Fx Only) Was patient sent home on osteoporosis medication?: No FOLLOW UP Follow Up: 6 wks TIME SPENT Time Spent in Discharge (Minutes): 20 Discharge Plan Discharge Patient Disposition: Home, Self Care Condition: Good Medically Cleared Date:: 05/04/25 Prescriptions: Continued docosahexaenoic acid [ DHA] 1 cap PO DAILY ferrous sulfate [FeroSul] 325 mg (65 mg iron) tablet 325 mg PO Q OTHER DAY Qty: 90 4RF Rx Instructions: best if taken in the morning. Discontinued aspirin [Enteric Coated Aspirin] 81 mg tablet,delayed release (DR/EC) 81 mg PO QDAY Qty: 90 4RF No Action magnesium citrate 100 mg tablet 100 mg PO DAILY Activity Restrictions/Additional Instructions: - Pelvic rest for 6 wks - No heavy lifting or strenuous exercise until 6 wks Diet: Regular Print Language: Kinyarwanda Patient Instructions: After a Vaginal Follow-up Care: Flakita Aguilera MD [Provider Admit Priv/Credential, Obstetrics/Gynecology] Referral Note: Please call clinic to schedule visit at 6 wks Vitals documented within 30 minutes of discharge?: Yes"
[2025-05-04 18:28] VITALS: BP 119/68; TEMP 98.4
--- NOTE | 2025-05-04 18:31 | Labor Flowsheet ---
Labor Flowsheet Datetime Report Generated by CPN: 05/04/2025 18:31 Datetime: 05/04/2025 18:19 VITAL SIGNS NBP Sys/Yesenia/Mean (mmHg): 119 : 68 : 80 Pulse: 82 Datetime: 05/03/2025 23:59 SpO2 (%): 97 Datetime: 05/03/2025 21:30 Stage of : Datetime: 05/03/2025 19:02 LaborFlag: Labor Datetime: 05/03/2025 17:50 Membranes Ruptured Date/Time: 05/02/2025 20:00 Datetime: 05/03/2025 17:22 Comments: delivered Datetime: 05/03/2025 17:15 UTERINE ACTIVITY Monitor Mode: External Frequency (min): 1-2 Quality: Strong Pattern: Normal: <= 5 Contractions in 10 Minutes Resting Tone (Palpate): Relaxed Contraction Comments: pushing with contractions ASSESSMENT A Monitor Mode: Telemetry FHR Baseline Rate : 150 Variability: Moderate 6-25 bpm Accelerations: None Decelerations: Early Category: Category I Datetime: 05/03/2025 16:45 Duration (sec): 40-60 Datetime: 05/03/2025 16:42 Communication Comments: Provider in room, pt. complete Datetime: 05/03/2025 16:30 Pitocin Checklist: At Least 1 Acceleration of 15 bpm x 15 Seconds in 30 Minutes or Adequate Variability; No More than 1 Late Deceleration Occurred in Past 30 Minutes; No More than 2 Variable Decelerations > 60 Seconds in Duration and decreasing >60 bpm in 30 minutes; No More than 5 Uterine Contractions in 10 Minutes for any 20 Minute Interval; Uterus Palpates Soft between Contractions Datetime: 05/03/2025 15:14 Analgesics/Sedatives: Fentanyl (mcg) @ 100 Datetime: 05/03/2025 15:13 Anesthesia Comments: ED MANAGER Aube at bedside, fentanyl given in epidural Datetime: 05/03/2025 15:10 COMMUNICATION Communication: RN at Bedside; Report Given to @ [facility] Datetime: 05/03/2025 15:04 VAGINAL EXAM Dilatation (cm): 8.0 Effacement (%): 90 Station: 0 Exam by: RN Yane Datetime: 05/03/2025 14:45 Respirations: 16 Temperature (C): 36.7 Temperature Route: Oral PAIN Pain Scale: 8 Pain Presence: Intermittent Pain Type: Pressure Pain Location: Perineum Datetime: 05/03/2025 14:16 Monitor Interventions for FHR: Ultrasound Adjusted Datetime: 05/03/2025 14:06 MEDICATIONS Pitocin (milliunits): Decreased to @ 3 mu Datetime: 05/03/2025 14:01 Patient Position/Activity: Right Tilt; High Fowlers Datetime: 05/03/2025 13:56 Patient Care Comments: DrOctavio Shahid at bedside to discuss POC with Pt Datetime: 05/03/2025 12:25 Medication Comments: Zofran 4 mg SIVP Datetime: 05/03/2025 12:12 Monitor Interventions for UA: [place] Adjusted Datetime: 05/03/2025 10:51 Pain Goal: 4 Pain Assessment Comments: Pt used PCEA button Datetime: 05/03/2025 09:07 Cervix, Position: Midposition Datetime: 05/03/2025 07:15 Oxygen Method: Room Air Datetime: 05/03/2025 07:00 Actions for Decelerations: Side to Side Datetime: 05/03/2025 06:40 I/O Interventions: Dick Cath Inserted Datetime: 05/03/2025 06:16 Epidural Procedure: Completed Datetime: 05/03/2025 06:10 Epidural Procedure Other: Pump Started Datetime: 05/03/2025 06:09 Antiemetics/Antacids: Zofran (mg) @ 4 Datetime: 05/03/2025 06:00 FHR Baseline Changes: No Baseline Change Datetime: 05/03/2025 05:50 Nausea/Vomiting: Present Datetime: 05/03/2025 05:47 PATIENT CARE IV/Blood Work: IV Bolus Started; IV Bolus Given ml @ 500 Datetime: 05/03/2025 05:36 PROCEDURE TIME OUT Procedure Type: 0536 Procedure Verify: Correct Patient Identity; Agreement on Procedure to be Done; Correct Patient Position Epidural Positioning: Sitting Datetime: 05/03/2025 05:30 ANESTHESIA Anesthesia Plans: Epidural Datetime: 05/03/2025 05:19 Vaginal Bleeding: None Cervix, Consistency: Soft Datetime: 05/03/2025 05:10 Consults: Anesthesia Datetime: 05/03/2025 02:31 Hygiene: Shower Datetime: 05/02/2025 22:48 Membrane Status: Ruptured Membranes Rupture Method: Artificial Amniotic Fluid Color: Clear Amniotic Fluid Amount: Small Amniotic Fluid Odor: Normal ROM Test Kit: Positive MATERNAL ASSESSMENT Level of Consciousness: Alert Headache: Denies Breath Sounds, Left: Clear and Equal Breath Sounds, Right: Clear and Equal RUQ Epigastric Pain: Denies TEACHING Instructional Method: Verbal Plan of Care: Plan of Care Discussed Datetime: 05/02/2025 22:20 Provider Notified (Name): Dr. Aguilera
== END 2025-05-04 18:30 | disposition home or self-care (01) | DRG 807 ==
LOC: WFO 22:02 → FBP 22:06
PROVIDERS: ADMIT Obstetrics & Gynecology; ATTEND Obstetrics & Gynecology
DX: Z37.0 Single live birth; Z87.59 Personal history of other complications of pregnancy, childbirth and the puerperium; O70.0 First degree perineal laceration during delivery; Z3A.39 39 weeks gestation of pregnancy; O26.53 Maternal hypotension syndrome, third trimester; O99.02 Anemia complicating childbirth